=== PATIENT | female | born 2000 | race Caucasian/White ===

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

== ENCOUNTER 2019-02-17 16:54 | Emergency (ER) | payer MEDICAID, SELFPAY ==
[2019-02-17 16:58] VITALS: BP 137/90; PULSE 80; RESP 16; TEMP 36.5; O2SAT 100
--- NOTE | 2019-02-17 17:15 | ED.GENADUL_ITS ---
Discharge Plan Disposition Patient Disposition: HOME Discharge Details Chief Complaint: EarProblem Clinical Impression: Acute upper respiratory infection Primary Care Provider: Georgette Shea ED Provider: Esau Roth Home Meds and New Rx's Prescriptions: New azelastine 137 mcg (0.1 %) aerosol,spray 137 mcg MARBELLA ONCE Qty: 30 RF: 0 fluticasone propionate [Flonase Allergy Relief] 50 mcg/actuation spray,suspension 1 spray MARBELLA DAILY Qty: 15.8 RF: 0 Continued Excedrin Migraine 250-250-65 mg tablet 1 tab PO PRN RF: 0 desogestrel-ethinyl estradiol [Apri] 0.15-0.03 mg tablet 1 tab PO DAILY Qty: 84 RF: 3 ibuprofen [Advil] 200 MG tablet 200 mg PO Q6H PRN PRNQty: 60 RF: 0 Discharge Instructions Instructions: Upper Respiratory Infection (ED) Referrals: Georgette Shea [Primary Care Provider] - Medical Decision Making 18-year-old female with resolving URI symptoms and ear fullness most consistent with eustachian tube dysfunction likely secondary to congestion. No objective hearing loss nontoxic no evidence of bacterial infection plan for Flonase and Astelin fluids rest and PCP follow-up return for increasing symptoms new concern or inability to follow-up. HPI 18-year-old female past medical history of appendectomy intermittent migraines on oral contraceptives allergic to amoxicillin presents with 3 to 4 days nasal congestion and intermittent ear fullness and popping. No objective loss no fever chills shortness of breath chest pain nausea vomiting or loss of consciousness. Symptoms are acute waxing and waning not improve any treatment at home morning. General Date/Time Provider Initiated Documentation: 02/17/19 17:04 . Related Data Home Medications Medication Instructions Recorded Confirmed ibuprofen [Advil] 200 mg PO Q6H PRN PRN #60 tab 03/06/16 02/17/19 [id number] 250 1 tab PO PRN tab 12/30/18 02/17/19 mg-250 mg-65 mg tablet desogestrel 0.15 mg-ethinyl 1 tab PO DAILY #84 tab 12/30/18 02/17/19 estradiol 0.03 mg tablet azelastine 137 mcg MARBELLA ONCE #30 ml 02/17/19 fluticasone propionate [Flonase 1 spray MARBELLA DAILY #15.8 ml 02/17/19 Allergy Relief] Previous Rx's Medication Instructions Recorded ibuprofen [Advil] 200 mg PO Q6H PRN PRN #60 tab 03/06/16 desogestrel 0.15 mg-ethinyl 1 tab PO DAILY #84 tab 12/30/18 estradiol 0.03 mg tablet azelastine 137 mcg MARBELLA ONCE #30 ml 02/17/19 fluticasone propionate [Flonase 1 spray MARBELLA DAILY #15.8 ml 02/17/19 Allergy Relief] Allergies Allergy/AdvReac Type Severity Reaction Status Date / Time amoxicillin [Amoxicillin] Allergy Unknown Skin Rash Unverified 02/17/19 17:03 General Stated Complaint: EarProblem JENNIFER: 4 Review of Systems All systems reviewed & are unremarkable except as noted in HPI and below PFSH Surgical History (Updated 12/31/18 @ 07:06 by Zuleyka Moreno NP) Appendectomy (09/02/14) Hx of tonsillectomy (Chronic) Social History Smoking/Tobacco Use Status: Never Quit status: has quit before Alcohol Intake: never Drug use: Never Substance use type: does not use Do you feel safe at home: Yes Do you feel safe in your relationship?: Yes Exam Narrative Exam Narrative: Pulse oximetry reviewed by me and is normal [] Constitutional: Pt is in no acute distress. pt is well appearing. oriented to person, place, and time. Eyes: conjunctivae are normal. Pupils are equal, round, and reactive to light. No scleral icterus. extraocular muscles are intact pharynx mild cobblestoning erythema edema or exudates TMs clear bilateral no cerumen no erythema no effusion Ears/Nose/Mouth/Throat: mucus membranes are moist. Musculoskeletal: neck is supple. normal range of motion in all extremities. Cardiovascular: Normal rate and rhythm. No lower extremity edema [] Respiratory: effort is normal . pt exhibits no stridor or respiratory distress. [] GastrointestinaI: abdomen soft, +BS, nontender, -rebound, -guarding. Neurological: alert and oriented to person, place, and time. he has normal strength, no tremor. Skin: Skin is warm and dry. he is not diaphoretic. Distal perfusion in tact, warm extremities, cap refill ? 2 seconds. Hem/Lymph/Imm: No cervical LAD, no goiter, no conjunctival pallor Psych: normal mood and affect. behavior is normal Triage and nurse notes reviewed.[] Course Vital Signs Vital signs: Vital Signs Temperature 36.5 C 02/17/19 16:58 Pulse 80 02/17/19 16:58 Respiratory Rate 16 02/17/19 16:58 Blood Pressure 137/90 02/17/19 16:58 Pulse Oximetry 100 02/17/19 16:58 Temperature 36.5 C 02/17/19 16:58 Temperature Source Temporal Artery Scan 02/17/19 16:58 Pulse 80 02/17/19 16:58 Respiratory Rate 16 02/17/19 16:58 Respiratory Effort Non-Labored 02/17/19 17:02 Blood Pressure 137/90 02/17/19 16:58 Blood Pressure Position Sitting 02/17/19 16:58 Pulse Oximetry 100 02/17/19 16:58 Oxygen Delivery Method Room Air 02/17/19 16:58 Oxygen Flow Rate 0 02/17/19 16:58 Pain Level 4 02/17/19 17:05
== END 2019-02-17 17:16 | disposition home or self-care (01) ==
PROVIDERS: Emergency Provider Emergency Medicine; PCP Nurse Practitioner Pediatrics
DX: J06.9 Acute upper respiratory infection, unspecified (principal)
CPT/HCPCS: 99283

== ENCOUNTER 2019-11-22 11:45 | Outpatient (REF) | payer OTHER, SELFPAY ==
[2019-11-22 19:01] LABS: HCT 46.2 % (36.0-46.0); HGB 15.4 g/dL (11.2-15.7); MCH 27.5 pg (27.0-33.0); MCHC 33.3 % (32.0-36.0); MCV 82.6 fL (80-95); MPV 9.9 fL (8.0-11.0); Platelet Count 405 10^3/uL (130-400); RBC 5.59 10^6/uL (3.93-5.22); RDW 12.8 % (11.7-14.6); RDW-SD 38.4 fL; WBC 8.48 10^3/uL (4.4-10.8)
[2019-11-22 19:23] LABS: ALT 24 U/L (14-59); AST 15 U/L (15-37); Albumin 3.7 g/dL (3.4-5.0); Alkaline Phosphatase 79 U/L (46-116); Anion Gap 9.7 mmol/L (3-11); BUN 11 mg/dL (7-18); Bilirubin, Total 0.2 mg/dL (0.2-1.0); CO2 25.3 mmol/L (21.0-32.0); CREATININE 0.74 mg/dL (0.55-1.02); Calcium 9.6 mg/dL (8.5-10.1); Chloride 103 mmol/L (98-107); Glucose 68 mg/dL (74-106); Potassium 4.3 mmol/L (3.5-5.1); Sodium 138 mmol/L (136-145); TSH (W/Ref FT4) 1.68 uIU/mL (0.36-3.74); Total Protein 7.6 g/dL (6.4-8.2)
== END 2019-11-22 12:05 ==
LOC: NCHCN 11:45
PROVIDERS: PCP Nurse Practitioner; Visit Provider Nurse Practitioner
DX: Z13.29 Encounter for screening for other suspected endocrine disorder (principal); Z13.1 Encounter for screening for diabetes mellitus; Z68.43 Body mass index [BMI] 50.0-59.9, adult; K58.9 Irritable bowel syndrome, unspecified; R53.83 Other fatigue
CPT/HCPCS: 80053; 82306; 85027; 84443

== ENCOUNTER 2020-09-12 03:48 | Outpatient (CLI) | payer OTHER, SELFPAY ==
[2020-09-12 07:43] LABS: Lipase 93 U/L (73-393)
[2020-09-13 09:32] LABS: HIV-1/2 Ag & Ab Screen Negative (Negative)
[2020-09-13 10:28] LABS: Hepatitis C Ab w Rflx HCV PCR Negative (Negative)
[2020-09-17 12:41] LABS: IgA 61 mg/dL (85-499); Interpretation (See Note); Tissue Transglutaminase IgA <1.2 U/mL (<4.0)
== END 2020-09-12 03:49 | disposition home or self-care (01) ==
LOC: LBO 03:48
PROVIDERS: PCP Nurse Practitioner Adult Health; Visit Provider Nurse Practitioner Adult Health
DX: R19.7 Diarrhea, unspecified (principal); R10.2 Pelvic and perineal pain; Z11.4 Encounter for screening for human immunodeficiency virus [HIV]; Z11.59 Encounter for screening for other viral diseases
CPT/HCPCS: 36415; 82784; 83516; 83690; 86803; 87389; 83630

== ENCOUNTER 2021-02-20 02:31 | Outpatient (CLI) | payer MEDICAID, SELFPAY ==
[2021-02-20 10:53] LABS: Abs Immature Grans 0.04 10^3/uL (0.0-0.06); Absolute Basophil Count 0.02 10^3/uL (0.0-0.2); Absolute Eosinophil Count 0.16 10^3/uL (0.0-0.7); Absolute Lymphocyte Count 2.49 10^3/uL (1.2-3.4); Absolute Monocyte Count 0.44 10^3/uL (0.1-0.8); Absolute Neutrophil Count 7.25 10^3/uL (1.2-6.7); Basophils % 0.2; Eosinophils % 1.5; HCT 41.9 % (36.0-46.0); Immature Grans % 0.4; Lymphocytes % 23.9; MCH 27.8 pg (27.0-33.0); MCHC 33.4 % (32.0-36.0); MCV 83.3 fL (80-95); MPV 9.1 fL (8.0-11.0); Monocytes % 4.2; Neutrophils % 69.8; Nucleated RBC 0 %; Platelet Count 332 10^3/uL (130-400); RBC 5.03 10^6/uL (3.93-5.22); RDW 12.7 % (11.7-14.6); RDW-SD 38.4 fL
[2021-02-20 10:56] LABS: Glucose,1 Hr (Glucola) 124 mg/dL (80-140)
[2021-02-20 12:09] LABS: *AMPHETAMINES SCREEN URINE Negative (Negative); *BARBITURATES SCREEN URINE Negative (Negative); *BENZODIAZEPINES SCREEN URINE Negative (Negative); Cannabinoids THC Negative (Negative); Cocaine Screen,Urine Negative (Negative); METHADONE URINE SCREEN Negative (Negative); OPIATES URINE SCREEN Negative (Negative)
[2021-02-20 12:11] LABS: Tricyclic Antidepressants Negative (Negative)
[2021-02-21 08:48] LABS: Hepatitis B Surface Ag Negative (Negative)
[2021-02-21 09:37] LABS: Hepatitis C Ab w Rflx HCV PCR Negative (Negative)
[2021-02-21 09:41] LABS: HIV-1/2 Ag & Ab Screen Negative (Negative)
[2021-02-21 14:57] LABS: Syphilis Total Ab w/Reflex Nonreactive (Nonreactive)
[2021-02-21 15:47] LABS: Chlamydia Result Negative (Negative); GC Result Negative (Negative)
[2021-02-22 15:29] LABS: Rubella IgG Ab (UVM) Positive (See Note); Varicella IgG Antibody Positive (See Note)
[2021-02-26 10:16] LABS: Specimen WB Whole Blood
[2021-02-27 18:23] LABS: Result Summary NEGATIVE; Specimen WB Whole Blood
[2021-03-05 14:51] LABS: Buprenorphine Negative ng/mL (Cutoff: 5.0); Norbuprenorphine Negative ng/mL (Cutoff: 2.5)
== END 2021-02-20 02:32 | disposition home or self-care (01) ==
PROVIDERS: PCP Nurse Practitioner Adult Health; Visit Provider Advanced Practice Midwife
DX: Z34.91 Encounter for supervision of normal pregnancy, unspecified, first trimester
CPT/HCPCS: 36415; 80307; 81329; 82950; 86787; 86803; 86850; 86900; 86901; 87340; 87389; 87491; 87591; 81220; 84443; 85025; 86762; 86780; 87086

== ENCOUNTER 2021-02-20 10:41 | Outpatient (REF) | payer OTHER, SELFPAY ==
--- NOTE | 2021-02-20 10:00 | PAPFT_PTH ---
PATIENT: Jenifer Anglin LOC: [facility] U#:[id number] AGE/SX: ROOM: RE02/20/[address]: Rosita Motta CNM : 2000 BED: DIS: 02/20/2021 SPEC #: [id number]: RECD: 02/20/21 13:02 STATUS: ANA FRANCO #: [id number] ARABELLA: 02/20/21 10:[address]: Rosita Motta DEPT: [facility] Cytology RECD BY: Arlen Oconnell ENTERED: 02/20/21 13:02 SP TYPE: PAPFT MARIBEL DR: Shameka Johnson, TRUONG Tissues: 1 - CX/ENDOCX FOR PAP SMEARS Procedures: PAP THIN PREP/[facility] Screening Comments: [id number]
== END 2021-02-20 10:42 | disposition home or self-care (01) ==
LOC: LBN 10:41
PROVIDERS: PCP Nurse Practitioner Adult Health; Visit Provider Advanced Practice Midwife
DX: Z12.4 Encounter for screening for malignant neoplasm of cervix (principal)
CPT/HCPCS: 88142

== ENCOUNTER 2021-04-12 01:14 | Outpatient (CLI) | payer OTHER, MEDICAID, SELFPAY ==
--- NOTE | 2021-04-12 06:30 | DI.US_ITS ---
Exam(s) US OB 2-3 TRIMESTER W MOD EXAM: US OB 2-3 TRIMESTER W MOD CLINICAL HISTORY: 18 wk anatomy survey,Z34.90. TECHNIQUE: Transabdominal obstetrical ultrasound performed. COMPARISON: No exams were available for comparison FINDINGS: Transabdominal obstetrical ultrasound performed. FINDINGS: Number of fetuses: One. position: Vertex. heart rate: bpm. Placental location: There is a grade 1 anterior placenta. The placental tip is 1.2 cm from the inter nal os. No evidence of previa. Amniotic fluid index: Amount of fluid is within normal limits. ANATOMICAL SURVEY: Within normal limits. The nose and lips were not well appreciated on t his examination. BIOMETRIC DATA: BPD: 4.2cm consistent with 18 weeks 5 days. HC: 16cm consistent with 18 weeks 6 days. AC: 13.0cm consistent with 18 weeks 3 days. FL: 2.8cm consistent with 18 weeks 4 days. Cisterna Magna: 3.3 mm Cerebellum 1.8 cm: EFW: 246 grms 54% Composite Age: 18 weeks 5 days EDC by US: 09/08/2021 Heart Rate: 155BPM IMPRESSION: 1. Single live intrauterine gestation as above. 2. There is a low-lying placenta. 3. The nose and lips were not adequately visualized on the current examination. The patient should r eturn for reimaging of the nose and lips. DATA REPOSITORY:
== END 2021-04-12 01:34 ==
PROVIDERS: PCP Nurse Practitioner Adult Health; Visit Provider Advanced Practice Midwife
DX: O44.42 Low lying placenta NOS or without hemorrhage, second trimester (principal); Z3A.18 18 weeks gestation of pregnancy
CPT/HCPCS: 76805

== ENCOUNTER 2021-06-21 01:46 | Outpatient (CLI) | payer OTHER, MEDICAID, SELFPAY ==
[2021-06-21 11:25] LABS: HCT 39.5 % (36.0-46.0); HGB 12.8 g/dL (11.2-15.7); MCH 27.9 pg (27.0-33.0); MCHC 32.4 % (32.0-36.0); MCV 86.2 fL (80-95); MPV 9.2 fL (8.0-11.0); Platelet Count 288 10^3/uL (130-400); RBC 4.58 10^6/uL (3.93-5.22); RDW 14.2 % (11.7-14.6); RDW-SD 43.8 fL; WBC 14.09 10^3/uL (4.4-10.8)
[2021-06-21 11:36] LABS: Glucose,1 Hr (Glucola) 124 mg/dL (80-140)
== END 2021-06-21 01:47 | disposition home or self-care (01) ==
LOC: LBO 01:46
PROVIDERS: PCP Nurse Practitioner Adult Health; Visit Provider Advanced Practice Midwife
DX: Z34.93 Encounter for supervision of normal pregnancy, unspecified, third trimester (principal); Z3A.28 28 weeks gestation of pregnancy
CPT/HCPCS: 36415; 82950; 85027

== ENCOUNTER → 2021-08-05 02:19 | Outpatient (CLI) | payer OTHER, MEDICAID, SELFPAY ==
--- NOTE | 2021-08-05 08:15 | DI.US_ITS ---
Exam(s) US OB MARINO WEIGHT EXAM: US OB MARINO WEIGHT CLINICAL HISTORY: S>D,o26.843,SIZE OF FETUS INCONSISTENT WITH DATES. TECHNIQUE: Transabdominal obstetrical ultrasound performed. COMPARISON: US US OB 2-3 TRIMESTER W MOD from 04/12/2021 US US OB F/U FACIAL/LVOT/RVOT from 04/19/2021 US US OB F/U FACIAL/LVOT/RVOT from 06/21/2021 FINDINGS:: Number of fetuses: One. position: Vertex. Placental location: Anterior. No evidence of previa. BIOMETRIC DATA: BPD: 88mm = 35+4 weeks HC: 306 mm = 34 weeks AC: 307mm = 34+ 6 weeks FL: 67 mm = 34+5 weeks EFW: 2486 Gms = 41% Composite Age: 34+5 weeks EDC: 11 September 2021 Heart Rate: 153 BPM Amniotic fluid index: 7.6 cm. This corresponds to between 2. 5th and 5th percentile. IMPRESSION: size and weight are within the expected range. Oligohydramnios. DATA REPOSITORY:
== END ==
PROVIDERS: PCP Nurse Practitioner Adult Health; Visit Provider Advanced Practice Midwife
DX: O26.843 Uterine size-date discrepancy, third trimester (principal); Z3A.34 34 weeks gestation of pregnancy; O41.03X0 Oligohydramnios, third trimester, not applicable or unspecified
CPT/HCPCS: 76816

== ENCOUNTER 2021-08-14 08:06 | Outpatient (CLI) | payer OTHER, MEDICAID, SELFPAY ==
[2021-08-14 08:47] VITALS: BP 110/65; PULSE 111; TEMP 36.6
[2021-08-14 08:48] VITALS: BP 110/65; PULSE 111; RESP 18; TEMP 36.6
--- NOTE | 2021-08-14 10:10 | W.OBNST ---
Date of service: 08/14/21 Time of Service: 10:10 NST Evaluation Reason for NST Reasons for Nonstress Test: OTHER, SEE COMMENT Reason for NST Other: amniotic fluid check Gestational Age Gestational Age in Weeks and Days: 36 Weeks and 1Days Test and Monitor Explained Test/Monitor Explained: Test Explained, Monitor Explained and Patient Verbalized Understanding Vital Signs Blood Pressure: 110/65 Pulse: 111 Temperature: 97.9 F NST Information Date on Monitor: 08/14/21 Time on Monitor: 08:42 Date off Monitor: 08/14/21 Time off Monitor: 09:30 Total Time on Monitor: 48 NST Interventions: PO Hydration and Notify Provider Contraction Frequency: 0 NST Evaluation Patient States Movement: Present FHR Baseline: 150 Variability: Moderate 6-25 bpm Accelerations: 15x15 Decelerations: None NST Results: Reactive Note MARINO (Ultrasound done in DI last week gave MARINO of 7.6. Today is a scheduled follow-up MARINO @ 36 wks) Results of MARINO: 9.5 MARINO with single deepest pocket 3.9 cm Plan is repeat MARINO @ 40 wks NST Note NST Reviewed and Verified by: Rosita Motta
[2021-08-14 10:12] VITALS: BP 110/65; PULSE 111; TEMP 36.6
[2021-08-14 10:14] LABS: HCT 39.5 % (36.0-46.0); HGB 13.2 g/dL (11.2-15.7); MCH 27.8 pg (27.0-33.0); MCHC 33.4 % (32.0-36.0); MCV 83 fL (80-95); MPV 9.7 fL (8.0-11.0); Platelet Count 245 10^3/uL (130-400); RBC 4.75 10^6/uL (3.93-5.22); RDW 13.6 % (11.7-14.6); RDW-SD 41.1 fL; WBC 11.26 10^3/uL (4.4-10.8)
[2021-08-14 11:22] LABS: *AMPHETAMINES SCREEN URINE Negative (Negative); *BARBITURATES SCREEN URINE Negative (Negative); *BENZODIAZEPINES SCREEN URINE Negative (Negative); Cannabinoids THC Negative (Negative); Cocaine Screen,Urine Negative (Negative); METHADONE URINE SCREEN Negative (Negative); OPIATES URINE SCREEN Negative (Negative)
[2021-08-14 11:24] LABS: Tricyclic Antidepressants Negative (Negative)
[2021-08-20 14:53] LABS: Buprenorphine Negative ng/mL (Cutoff: 5.0); Norbuprenorphine Negative ng/mL (Cutoff: 2.5)
== END 2021-08-14 10:10 | disposition home or self-care (01) ==
LOC: BCD 08:10 → OBS 08:39
PROVIDERS: PCP Nurse Practitioner Adult Health; Visit Provider Advanced Practice Midwife
DX: O26.893 Other specified pregnancy related conditions, third trimester (principal); Z3A.36 36 weeks gestation of pregnancy
CPT/HCPCS: 59025; 36415; 80307; 85027; 87081

== ENCOUNTER 2021-09-03 14:03 | Outpatient (CLI) | payer OTHER, MEDICAID, SELFPAY ==
--- NOTE | 2021-09-03 | DI.US_ITS ---
Exam(s) US OB BIOPHYSICAL PROFILE EXAM: US OB BIOPHYSICAL PROFILE INDICATION: S>D, DFM, BMI 43. COMPARISON: US US OB MARINO WEIGHT from 09/03/2021 TECHNIQUE: Biophysical profile FINDINGS: Biophysical profile score is 8/8, with no points adducted IMPRESSION: Biophysical profile score is 8/8, with no points adducted
--- NOTE | 2021-09-03 | DI.US_ITS ---
Exam(s) US OB MARINO WEIGHT EXAM: US OB MARINO WEIGHT CLINICAL HISTORY: S>D, BMI 43. TECHNIQUE: Transabdominal obstetrical ultrasound was performed. COMPARISON: US US OB MARINO WEIGHT from 08/05/2021 FINDINGS: There is a single viable intrauterine gestation with cardiac activity identified-152 bpm The fetus is presently in cephalic position . Amniotic fluid: There is a decreased amount of amniotic fluid again noted with an MARINO of only 3.8cm. Placental location: The placenta is anterior grade 3,with no evidence of placenta previa. Dating parameters place this at approximately 38 weeks and 5 days gestational age, implying HUMBERTO of September 12, 2021. BPD measures 38 weeks HC measures 39 weeks AC measures 39 week FL measures 39 weeks Estimated weight is 3618 gm-8 pounds 0 and sys Fetus is at the 66th percentile on the Hadlock scale. IMPRESSION:: Viable 3rd trimester gestation, as described above. Oligo hydramnios again noted. The amniotic fluid index is significantly low, measuring 3.8 cm Biophysical profile is 8/8, with no points DATA REPOSITORY:
[2021-09-03 14:21] VITALS: BP 126/73; PULSE 93; TEMP 36.7
[2021-09-03 14:23] VITALS: BP 126/73; PULSE 93
[2021-09-03 16:21] VITALS: BP 126/73; PULSE 93; TEMP 36.7
--- NOTE | 2021-09-04 07:28 | W.OBNST ---
Date of service: 09/03/21 Time of Service: 16:00 NST Evaluation Reason for NST Reasons for Nonstress Test: DECREASED MOVEMENT Gestational Age Gestational Age in Weeks and Days: 39 Weeks and 0Days Test and Monitor Explained Test/Monitor Explained: Test Explained, Monitor Explained and Patient Verbalized Understanding Vital Signs Blood Pressure: 126/73 Pulse: 93 Temperature: 98.0 F Urine Results Urine Protein: Negative Urine Ketones: Negative Urine Glucose: Negative Urine Blood: Negative NST Information Date on Monitor: 09/03/21 Time on Monitor: 17:20 Date off Monitor: 09/03/21 Time off Monitor: 17:44 Total Time on Monitor: 24 NST Interventions: PO Hydration Contraction Frequency: 5-6 NST Evaluation Patient States Movement: Present FHR Baseline: 130 Variability: Moderate 6-25 bpm Accelerations: 15x15 Decelerations: None NST Results: Reactive Note Biophysical Profile (completed in DI) Results of Biophysical Profile: BPP score 6/8, MARINO was 3.8 with SDP of 2.0 EFW 3618 gms NST Note Note: Consultation with Dr. Anaya: NST is reactive, will have pt return tomorrow for repeat MARINO on Center Cvx 1/50%, posterior & soft, vtx -3 Farah score is 4 NST Reviewed and Verified by: Rosita Motta
[2021-09-04 07:32] VITALS: BP 126/73; PULSE 93; TEMP 36.7
== END 2021-09-03 16:48 | disposition home or self-care (01) ==
LOC: BCD 14:06 → OBS 14:17
PROVIDERS: PCP Nurse Practitioner Adult Health; Visit Provider Advanced Practice Midwife
DX: O36.8130 Decreased fetal movements, third trimester, not applicable or unspecified (principal); Z3A.39 39 weeks gestation of pregnancy; O41.03X0 Oligohydramnios, third trimester, not applicable or unspecified
CPT/HCPCS: 59025; 76815; 76816; 76819

== ENCOUNTER 2021-09-04 07:31 | Outpatient (CLI) | payer OTHER, MEDICAID, SELFPAY ==
[2021-09-04 10:18] VITALS: BP 128/70; PULSE 96; TEMP 36.8
[2021-09-04 10:19] VITALS: BP 128/70; PULSE 96
--- NOTE | 2021-09-04 11:51 | W.OBNST ---
Date of service: 09/04/21 Time of Service: 11:52 NST Evaluation Reason for NST Reasons for Nonstress Test: OLIGOHYDRAMNIOS Gestational Age Gestational Age in Weeks and Days: 40 Weeks and 0Days Test and Monitor Explained Test/Monitor Explained: Test Explained, Monitor Explained, Patient Verbalized Understanding and Other Vital Signs Blood Pressure: 128/70 Pulse: 96 Temperature: 98.2 F NST Information Date on Monitor: 09/04/21 Time on Monitor: 10:20 Date off Monitor: 09/04/21 Time off Monitor: 10:50 Total Time on Monitor: 30 NST Interventions: PO Hydration NST Evaluation Patient States Movement: Present FHR Baseline: 135 Variability: Moderate 6-25 bpm Accelerations: 15x15 Decelerations: None NST Results: Reactive Note MARINO Results of MARINO: 7.28 with SDP of 2.49 NST Note Note: Reviewed MARINO with pictures with Dr. Urrutia, plan of care discussed Pt to return to for NST in 3 days, and repeat NST with MARINO in 5-6 days Reviewed plan with pt and partner, they verbalize understanding and agreement with plan kick counts reviewed, pt will not return to work, note for employer given. NST Reviewed and Verified by: Rosita Motta
[2021-09-04 11:54] VITALS: BP 128/70; PULSE 96; TEMP 36.8
== END 2021-09-04 11:44 | disposition home or self-care (01) ==
LOC: BCD 07:41 → NUR 10:10 → OBS 10:13
PROVIDERS: PCP Nurse Practitioner Adult Health; Visit Provider Advanced Practice Midwife
DX: O41.03X0 Oligohydramnios, third trimester, not applicable or unspecified (principal); Z3A.40 40 weeks gestation of pregnancy
CPT/HCPCS: 59025

== ENCOUNTER 2021-09-07 09:49 | Outpatient (CLI) | payer OTHER, MEDICAID, SELFPAY ==
[2021-09-07 10:52] VITALS: BP 118/69; PULSE 97; TEMP 36.7
[2021-09-07 11:03] VITALS: BP 118/69; PULSE 97
--- NOTE | 2021-09-07 11:12 | W.OBNST ---
Date of service: 09/07/21 Time of Service: 11:13 NST Evaluation Reason for NST Reasons for Nonstress Test: OLIGOHYDRAMNIOS Reason for NST Other: low MARINO 7.28 by bedside US < 1 week ago Gestational Age Gestational Age in Weeks and Days: 39 Weeks and 4Days Test and Monitor Explained Test/Monitor Explained: Test Explained Vital Signs Blood Pressure: 118/69 Pulse: 97 Temperature: 98.1 F NST Information NST Interventions: PO Hydration NST Evaluation Patient States Movement: Present FHR Baseline: 150 Variability: Moderate 6-25 bpm Accelerations: 15x15 Decelerations: None Note NST Note Note: NST is reactive and reassuring. CAT Radha Burgess will return on 09/09 for repeat NST and MARINO due to MARINO 7.28 < 1week ago. NST Reviewed and Verified by: Karina Preston
[2021-09-07 11:13] VITALS: BP 118/69; PULSE 97; TEMP 36.7
== END 2021-09-07 11:15 | disposition home or self-care (01) ==
LOC: BCD 09:50 → OBS 10:28
PROVIDERS: PCP Nurse Practitioner Adult Health; Visit Provider Advanced Practice Midwife
DX: O41.03X0 Oligohydramnios, third trimester, not applicable or unspecified (principal); Z3A.39 39 weeks gestation of pregnancy
CPT/HCPCS: 59025

== ENCOUNTER 2021-09-09 12:04 | Inpatient (IN) | payer OTHER, MEDICAID, SELFPAY ==
[2021-09-09] VITALS (8 sets, daily range): BP systolic 111–132; BP diastolic 64–80; PULSE 79–98; RESP 18; TEMP 36.5–37
[2021-09-09 12:33] LABS: HCT 42.8 % (36.0-46.0); HGB 14.2 g/dL (11.2-15.7); MCH 27.2 pg (27.0-33.0); MCHC 33.2 % (32.0-36.0); MCV 82 fL (80-95); MPV 10.1 fL (8.0-11.0); Platelet Count 265 10^3/uL (130-400); RBC 5.22 10^6/uL (3.93-5.22); RDW 13.9 % (11.7-14.6); WBC 10.53 10^3/uL (4.4-10.8)
--- NOTE | 2021-09-09 12:50 | W.OBNST ---
Date of service: 09/09/21 Time of Service: 11:30 NST Evaluation Reason for NST Reasons for Nonstress Test: OLIGOHYDRAMNIOS Reason for NST Other: ? of oligo Gestational Age Gestational Age in Weeks and Days: 39 Weeks and 6Days Test and Monitor Explained Test/Monitor Explained: Test Explained, Monitor Explained and Patient Verbalized Understanding Vital Signs Blood Pressure: 132/80 Pulse: 94 Temperature: 97.7 F Urine Results Urine Protein: Negative Urine Ketones: Negative Urine Glucose: Positive Urine Blood: Negative NST Information Date on Monitor: 09/09/21 Time on Monitor: 10:15 Date off Monitor: 09/09/21 Time off Monitor: 11:00 Total Time on Monitor: 45 NST Interventions: PO Hydration Contraction Frequency: none NST Evaluation Patient States Movement: Present FHR Baseline: 150 Variability: Moderate 6-25 bpm Accelerations: 15x15 Decelerations: None NST Results: Reactive Note MARINO (4.26cm, very little visible fluid) and Other (Breathing movements noted. +gross movement. Reactive NST. No official BPP done. ) NST Note Note: MARINO for prior oligohydramnios with sono a week ago. Repeat sono end of last week had normal marino (7+). Sono today confirmed oligo. I recommend induction of labor and pt is agreeable to plan. Discussed findings with CNM manager occupational. NST Reviewed and Verified by: Summer Anaya
[2021-09-09] MEDS: miSOPROStol 25 MCG TAB 50 MCG PO ×3 (13:07→21:13)
--- NOTE | 2021-09-09 14:16 | W.OBNST ---
Date of service: 09/09/21 Time of Service: 14:17 NST Evaluation Reason for NST Reasons for Nonstress Test: OLIGOHYDRAMNIOS Reason for NST Other: ? of oligo Gestational Age Gestational Age in Weeks and Days: 39 Weeks and 6Days Test and Monitor Explained Test/Monitor Explained: Test Explained, Monitor Explained and Patient Verbalized Understanding Vital Signs Blood Pressure: 132/80 Pulse: 94 Temperature: 97.7 F Urine Results Urine Protein: Negative Urine Ketones: Negative Urine Glucose: Positive Urine Blood: Negative NST Information Date on Monitor: 09/09/21 Time on Monitor: 10:15 Date off Monitor: 09/09/21 Time off Monitor: 11:00 Total Time on Monitor: 45 NST Interventions: PO Hydration Contraction Frequency: none NST Evaluation Patient States Movement: Present FHR Baseline: 150 Variability: Moderate 6-25 bpm Accelerations: 15x15 Decelerations: None NST Results: Reactive Note NST Note Note: MARINO performed by Dr Summer simmons. MARINO 4.2 I discussed IOL with Jenifer and she is in agreement. She is admitted for IOL for oligohydramnios NST Reviewed and Verified by: Karina Malhotra
--- NOTE | 2021-09-09 14:47 | W.PM.OBHPL1 ---
Date of service: 09/09/21 Time of Service: 12:00 Assessment and Plan Assessment and plan (1) Oligohydramnios: Status: Acute (2) Encounter for elective induction of labor: Status: Acute Assessment and plan: Admit to Center. Comfort measures. Covid- 19 test. options for cervical ripening discussed and Jenifer and her partner, Wilian and they would like to proceed with mispoprostol for cervical ripening, Anticipate . OB-HPI Labor/Delivery History of Present Illness Reason for Visit: COVID.Pre procedure/operative Chief Complaint: Scheduled Induction of Labor Indication for Induction: Oligohydramnios. HUMBERTO Calculator Estimated Delivery Date Method Current WG Current Estimate 09/10/21 Ultrasound #1 39w 6d Other Estimates 09/05/21 LMP (Certain) 40w 4d Comments: Jenifer came to the center for an NST and MARINO check. MARINO was performed by Dr Anaya and MARINO was 4.2. IOL was discussed with Jenifer and she wishes to proceed with that today. History of Present Expected Delivery Route/Plan - CNM FOB/byfrnd - Wilian Suarez (first child) BB Yoni, yes to circ Plans formula feeding only GBS POSITIVE - antibiotic prophylaxis in labor (Ancef) Labor support Wilian, he passes out when he sees needles Trying to avoid medications in labor for pain, aware of nitrous use. Specific Issues/Plan 1. BMI 37: early glucola 124, 124 at 28 weeks 2. Pt and FOB decline COVID vaccination 3. Self reports Amoxicillin allergy, will discuss allergy testing 3a. Low risk per screening, desires allergy testing, ref to [facility] sent 02/20/21- pt declined appt 3b. Per allergy screening questions, pt is low risk for PCN reax, will use Ancef for GBS prophylaxis 4. Right sciatic pain, referred to PT 5. Start low dose ASA at 12 wks for nullip/BMI & strong family hx HTN 6. Desires CF/SMA screening, declined cfDNA, CF/SMA neg 7. Tinea Versicolor underneath breasts and at back of neck @ initial OB: 7a. Selsun Blue and H&S shampoo, Lotrimin cream TID under breasts, recheck in 1 month 8. s/p appendectomy age 14 9. Low lying placenta 1.2 cm from os at 18 wk scan, f/up scan @ 26-30 wks 9a: Done 06/21/21, placenta tip is 6 cm from internal os, no longer low lying 9b. MARINO 7.6 EFW 41%ile, repeat MARINO scheduled in 1 wk: MARINO @ 36 wks=9.5 PFSH All Active Problems (Updated 09/09/21 @ 14:53 by Karina Malhotra CNM) Encounter for elective induction of labor (Acute) Oligohydramnios (Acute) Amniotic fluid index borderline low (Acute) Group B streptococcal carriage complicating (Acute) Tinea versicolor (Acute) back of neck, underneath breasts bilaterally Family history of hypertension (Acute) extensive HTN in pt's immediate and extended family Sciatica of right side (Acute) refered to PT 02/20/21 Allergy to amoxicillin (Acute) Pt reports allergy is a skin rash, historically. Referred to [facility] for allergy testing 02/20/21 BMI 37.0-37.9, adult (Acute) (Acute) Medical History (Updated 09/09/21 @ 14:53 by Karina Malhotra CNM) Abdominal pain Contraception Diarrhea Rferred [facility] GI 08/2020-->11/13/20 letter from [facility] stating they hadn't heard from pt (vmail mailbox full) Low lying placenta nos or without hemorrhage, second trimester Size of fetus inconsistent with dates in third trimester Surgical History Appendectomy (09/02/14) Hx of tonsillectomy (~03/2015) Family History Father Hyperlipidemia Lung cancer metastasized to liver and bone Diabetes Hypertension Asthma Mother Thyroid disorder Paternal Cousin Breast cancer Maternal Uncle No problems noted. Paternal Grandfather , [place] (in his 70s?) Heart disease Social History Smoking/Tobacco Use Status: Former Tobacco Use tobacco type: e-cigarettes Quit Date: 03/02/18 Tobacco: How many years used: 4 Quit status: has quit before Second Hand Exposure: Yes Smoking risk assessment performed?: Yes Alcohol Intake: current Alcohol Intake frequency: holidays/special occasions only Drug use: Never Substance use type: does not use Details: no IV drug use Adopted: No Caregiver/Support person: No Foster care: No Household members: significant other Housing: house Number of Children: 0 Communication Needs: Corrective Lenses Education Level: college Details: some Do you need help understanding health information?: Never 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 Pets and animals: Yes Pets and animals: cat(s) Sexually active: Yes Do you think of yourself as: straight/heterosexual Current gender identity: female What is your relationship status?: living with partner Panel score (0-1 are the most socially isolated patients): 1 What type of physical activity do you participate in: regular exercise and other Details: softball 2 nights/week Duration: 60-90 minutes/day Frequency: 1-2 times per week Seatbelt use: never Drive intox or ride w/intox lumber driver: No Water heater temp set <120 deg: Yes Working smoke detector in home: Yes Fire extinguisher in home: Yes Carbon monox detector in home: Yes Firearms in home: No Do you feel safe at home: Yes Do you feel safe in your relationship?: Yes Additional Social history: Confirmed 09/09/21 History History 1 Para 0 Hx # Term Pregnancies 0 Multiple births 0 Hx # Pregnancies 0 Ectopic pregnancies 0 AB induced 0 Hx Number of Living Children 0 AB spontaneous 0 Meds Allergies and Home Medications Allergies Allergy/AdvReac Type Severity Reaction Status Date / Time amoxicillin [Amoxicillin] Allergy Unknown Skin Rash Verified 09/09/21 12:27 Home Medications Medication Instructions Recorded Confirmed Type vitamin with calcium 1 tab PO DAILY #90 tabs 01/29/21 09/09/21 Rx no.72-iron 27 mg-folic acid 1 mg tablet (PrePlus) aspirin 81 mg tablet,delayed 81 mg PO DAILY #60 tabs 02/20/21 09/09/21 Rx release Boostrix Tdap 2.5 Lf unit-8 mcg-5 0.5 ml IM ONCE #0.5 mL 07/19/21 Clinic Lf/0.5 mL intramuscular syringe (diphth,pertus(acell),tetanus) Exam Physical Exam Vital signs: Pulse BP 94 H 132/80 09/09/21 10:40 09/09/21 10:40 Detailed Labor and Delivery Exam Dilation: 1 Effacement (%): 50 station: -1 Cervix position: mid Consistency: soft Turpin Score: Cervical Points Exam 0 1 2 3 Dilation Closed 1-2cm 3-4 cm 5-6cm Effacement 0-30% 40-50% 60-70% 80% Consistency Firm Medium Soft Station -3 -2 -1,0 +1,+2 Position Posterior Mid Anterior TURPIN Score(Cervical Ripeness Score): 7 Amniotic Membrane Status: Intact Monitor Mode: External Contraction Frequency(min): occasional Contraction Duration(sec): 50 Contraction Intensity: Mild Fetus A Heart Rate Baseline: 130 Monitor Accelerations: 15 X 15 Monitor Decelerations: None Variability: Moderate (6-25 BPM) Presentation: Vertex Categories: Category I Est. Weight: 8 lb Respiratory Exam Respiratory Exam: Normal Cardiovascular Exam Cardiovascular Exam: Normal Abdominal Exam Abdominal Exam: Normal Exam Exam: Normal Extremities Exam Extremities Exam: Normal Back/Spine/Pelvis Exam Back Exam: Normal Skin Exam Skin Exam: Normal Psychiatric Exam Psychiatric Exam: Normal Results Results Group Beta Strep: Negative Blood Type: O+ Rubella Status: Immune Varicella Immunity: Immune Risk Assessment Risk for Shoulder Dystocia Historical/Initial OB: POSITIVE FOR: Pre- BMI>30; NEGATIVE FOR: Pelvic Abnormality, Previous Shoulder Dystocia or Previous Macrosomia Delivery Plan @ 36wks: spont labor, Delivery Plan @ 40 wks: IOL for oligohydramnios Risk for Pre-Eclampsia Date Initiated/Initials: start low dose ASA at 12 wks. KEIRA Yes, if one or more: NEGATIVE FOR: Hx Pre-E/Gest HTN, Chronic HTN, Multiple Gestation, Pre-gestational DM, Renal Disease, Systemic Lupus or APA Syndrome Yes, if 2 or more: POSITIVE FOR: Nulliparity and BMI>30; NEGATIVE FOR: Age>= 35 yrs, >10yr btwn pregnancies, ethinicty, Mother/Sister w/ Pre-E or Previous IUGR Risk for Post- Hemorrhage Initial: NEGATIVE FOR: Multiple Gestation, Previous PPH, Known Clotting Deficiency, Grand Multiparity or Anticoagulation Counseled re: Active Management: Yes (08/27/21 keira) Risks Reviewed Risks Reviewed Upon Admission: Yes
[2021-09-09 16:13] LABS: Source Nasal/Nares
[2021-09-09 17:05] LABS: COVID-19 PCR Negative (Negative)
[2021-09-10] VITALS (8 sets, daily range): BP systolic 107–134; BP diastolic 67–82; PULSE 62–105; RESP 16–18; TEMP 36.5–36.7
[2021-09-10] MEDS: miSOPROStol 25 MCG TAB 50 MCG PO (01:09)
[2021-09-10] MEDS: miSOPROStol 50 MCG TAB PO ×2 (08:14→12:28)
--- NOTE | 2021-09-10 11:59 | W.PM.OBNL1 ---
Date of service: 09/09/21 Time of Service: 22:30 Contractions Monitor Mode: External Contraction Frequency(min): occasional Contraction Duration(sec): 50 Intensity: Mild Fetus A Monitor: External (US) Heart Rate Baseline: 130 Presentation: Vertex Variability: Moderate (6-25 BPM) Categories: Category I FHR Rhythm: Regular Accelerations: 15 X 15 Decelerations: None Amniotic Membrane Status: Intact Assessment and Plan Assessment and plan (1) Encounter for elective induction of labor: Status: Acute Assessment and plan: Rest encouraged. Will plan to administer a fourth dose of misoprostol at 0100 and evaluate labor pattern. Will consider additional doses if indicated. (2) Oligohydramnios: Status: Acute Objective Temp Pulse Resp BP 98 F 88 16 128/79 09/10/21 07:58 09/10/21 07:58 09/10/21 07:58 09/10/21 07:58 Laboratory Results WBC 10.53 10^3/uL (4.4-10.8) 09/09/21 12:23 RBC 5.22 10^6/uL (3.93-5.22) 09/09/21 12:23 Hgb 14.2 g/dL (11.2-15.7) 09/09/21 12:23 Hct 42.8 % (36.0-46.0) 09/09/21 12:23 MCV 82 fL (80-95) 09/09/21 12:23 MCH 27.2 pg (27.0-33.0) 09/09/21 12:23 MCHC 33.2 % (32.0-36.0) 09/09/21 12:23 RDW 13.9 % (11.7-14.6) 09/09/21 12:23 Plt Count 265 10^3/uL (130-400) 09/09/21 12:23 MPV 10.1 fL (8.0-11.0) 09/09/21 12:23 COVID-19 Source Nasal/Nares 09/09/21 12:15 SARS-CoV-2 (PCR) Negative (Negative) 09/09/21 12:15 Patient ABO/Rh O Positive 09/09/21 12:23 Antibody Screen NEGATIVE 09/09/21 12:23 Subjective Interval history since last seen: Jenifer is comfortable. She has received 3 doses of misoprostol. She is resting. Results Hemoglobin/Hematocrit: Hgb 14.2 g/dL (11.2-15.7) 09/09/21 12:23 Hct 42.8 % (36.0-46.0) 09/09/21 12:23
--- NOTE | 2021-09-10 12:06 | W.PM.OBNL1 ---
Date of service: 09/10/21 Time of Service: 11:00 Informed Consent Informed Consent: Augmentation of Labor and Risk,Benefits,Alternatives Discussed (continued misporostol vs. cervical ripening balloon) Pelvic Exam Dilation: 1.5 Effacement (%): 80 station: -1 Cervix Position: mid Consistency: soft Vaginal Exam Presentation: Vertex Contractions Monitor Mode: External Contraction Frequency(min): every 3-4 Contraction Duration(sec): 60 Intensity: Moderate Fetus A Monitor: External (US) Heart Rate Baseline: 130 Presentation: Vertex Variability: Moderate (6-25 BPM) Categories: Category I FHR Rhythm: Regular Characteristics: Normal Accelerations: 15 X 15 Decelerations: None Amniotic Membrane Status: Intact Objective Temp Pulse Resp BP 98 F 88 16 128/79 09/10/21 07:58 09/10/21 07:58 09/10/21 07:58 09/10/21 07:58 Laboratory Results WBC 10.53 10^3/uL (4.4-10.8) 09/09/21 12:23 RBC 5.22 10^6/uL (3.93-5.22) 09/09/21 12:23 Hgb 14.2 g/dL (11.2-15.7) 09/09/21 12:23 Hct 42.8 % (36.0-46.0) 09/09/21 12:23 MCV 82 fL (80-95) 09/09/21 12:23 MCH 27.2 pg (27.0-33.0) 09/09/21 12:23 MCHC 33.2 % (32.0-36.0) 09/09/21 12:23 RDW 13.9 % (11.7-14.6) 09/09/21 12:23 Plt Count 265 10^3/uL (130-400) 09/09/21 12:23 MPV 10.1 fL (8.0-11.0) 09/09/21 12:23 COVID-19 Source Nasal/Nares 09/09/21 12:15 SARS-CoV-2 (PCR) Negative (Negative) 09/09/21 12:15 Patient ABO/Rh O Positive 09/09/21 12:23 Antibody Screen NEGATIVE 09/09/21 12:23 Subjective Interval history since last seen: Jenifer took a nap for over an hour. She is comfortable. She was examined upon awakening and there is evidence of cervical ripening. Results Hemoglobin/Hematocrit: Hgb 14.2 g/dL (11.2-15.7) 09/09/21 12:23 Hct 42.8 % (36.0-46.0) 09/09/21 12:23
--- NOTE | 2021-09-10 17:17 | W.PM.OBNL1 ---
Date of service: 09/10/21 Time of Service: 17:17 Informed Consent Informed Consent: Augmentation of Labor and Risk,Benefits,Alternatives Discussed (continued misporostol vs. cervical ripening balloon) Pelvic Exam Comments: pelvic exam deferred Contractions Monitor Mode: External Contraction Frequency(min): every 2-3 Contraction Duration(sec): 50-60 Intensity: Mild Fetus A Monitor: External (US) Heart Rate Baseline: 130 Presentation: Vertex Variability: Moderate (6-25 BPM) Categories: Category I FHR Rhythm: Regular Accelerations: 15 X 15 Decelerations: None Amniotic Membrane Status: Intact Assessment and Plan Assessment and plan (1) Encounter for elective induction of labor: Status: Acute Assessment and plan: options of cervical ripening balloon or pitocin discussed with Marbella. She strongly desires to proceed with pitocin induction. Will initiate pitocin at 2 mu/minute and reassess for cervical change when appropriate. Anticipate . Plan reviewed with Dr. Renan BROWNE. (2) Oligohydramnios: Status: Acute Objective Temp Pulse Resp BP 97.9 F 105 H 18 124/82 09/10/21 17:15 09/10/21 17:15 09/10/21 17:15 09/10/21 17:15 Laboratory Results WBC 10.53 10^3/uL (4.4-10.8) 09/09/21 12:23 RBC 5.22 10^6/uL (3.93-5.22) 09/09/21 12:23 Hgb 14.2 g/dL (11.2-15.7) 09/09/21 12:23 Hct 42.8 % (36.0-46.0) 09/09/21 12:23 MCV 82 fL (80-95) 09/09/21 12:23 MCH 27.2 pg (27.0-33.0) 09/09/21 12:23 MCHC 33.2 % (32.0-36.0) 09/09/21 12:23 RDW 13.9 % (11.7-14.6) 09/09/21 12:23 Plt Count 265 10^3/uL (130-400) 09/09/21 12:23 MPV 10.1 fL (8.0-11.0) 09/09/21 12:23 COVID-19 Source Nasal/Nares 09/09/21 12:15 SARS-CoV-2 (PCR) Negative (Negative) 09/09/21 12:15 Patient ABO/Rh O Positive 09/09/21 12:23 Antibody Screen NEGATIVE 09/09/21 12:23 Subjective Interval history since last seen: Jenifer reports a backache. She denies stronger contractions Results Hemoglobin/Hematocrit: Hgb 14.2 g/dL (11.2-15.7) 09/09/21 12:23 Hct 42.8 % (36.0-46.0) 09/09/21 12:23
[2021-09-10] MEDS: Oxytocin/Normal Saline 30 UNIT/500 ML BAG 2 UNITS IV (17:30)
[2021-09-10] MEDS: Lactated Ringers 1,000 ML 125 ML IV (17:30)
[2021-09-11] VITALS (25 sets, daily range): BP systolic 102–147; BP diastolic 54–79; PULSE 0–121; RESP 12–18; TEMP 36.5–37.2; O2SAT 97–100; BMI 44.6
--- NOTE | 2021-09-11 04:03 | W.PM.OBNL1 ---
Date of service: 09/11/21 Time of Service: 04:03 Informed Consent Informed Consent: Augmentation of Labor and Risk,Benefits,Alternatives Discussed (continued pitocin or discontine for sleep and restart or use misoprostol after she awakes) Pelvic Exam Dilation: 2 Effacement (%): 80 station: 0 Cervix Position: mid Consistency: soft Vaginal Exam Presentation: Vertex Contractions Monitor Mode: External Contraction Frequency(min): every 1 1/2-2 Contraction Duration(sec): 50 Intensity: Moderate/Strong Fetus A Monitor: External (US) Heart Rate Baseline: 140 Presentation: Vertex Variability: Moderate (6-25 BPM) Categories: Category I FHR Rhythm: Regular Accelerations: 15 X 15 Decelerations: None Amniotic Membrane Status: Intact Assessment and Plan Assessment and plan (1) Encounter for elective induction of labor: Status: Acute Assessment and plan: I discussed Jenifer's progress with her. She was given the option of discontinuing the monitor and taking ambien Po for sleep or continuing the pitocin with or with out medication for sleep. Jenifer would like to discontinue the pitocin and take ambien for sleep and we will proceed with that plan. Will reassess for cervical change after she awakes. (2) Oligohydramnios: Status: Acute Objective Temp Pulse Resp BP 97.9 F 96 H 18 111/66 09/10/21 17:15 09/11/21 03:06 09/10/21 17:15 09/11/21 03:06 Laboratory Results WBC 10.53 10^3/uL (4.4-10.8) 09/09/21 12:23 RBC 5.22 10^6/uL (3.93-5.22) 09/09/21 12:23 Hgb 14.2 g/dL (11.2-15.7) 09/09/21 12:23 Hct 42.8 % (36.0-46.0) 09/09/21 12:23 MCV 82 fL (80-95) 09/09/21 12:23 MCH 27.2 pg (27.0-33.0) 09/09/21 12:23 MCHC 33.2 % (32.0-36.0) 09/09/21 12:23 RDW 13.9 % (11.7-14.6) 09/09/21 12:23 Plt Count 265 10^3/uL (130-400) 09/09/21 12:23 MPV 10.1 fL (8.0-11.0) 09/09/21 12:23 COVID-19 Source Nasal/Nares 09/09/21 12:15 SARS-CoV-2 (PCR) Negative (Negative) 09/09/21 12:15 Patient ABO/Rh O Positive 09/09/21 12:23 Antibody Screen NEGATIVE 09/09/21 12:23 Subjective Interval history since last seen: Pitocin is at 20 mU. Jenifer has been trying to rest and has been unable to fall asleep for more than a few minutes. She complains of sever back ache. The Novii monitor was not detecting contractions so it was removed and the external ultrasound monitor was placed. It shows frequent contractions which are palpable as moderate to strong. Results Hemoglobin/Hematocrit: Hgb 14.2 g/dL (11.2-15.7) 09/09/21 12:23 Hct 42.8 % (36.0-46.0) 09/09/21 12:23
--- NOTE | 2021-09-11 04:09 | NUR.NOTE ---
Nursing Note: 0325 cnmw notified of patients status. kamari davison fiberglass tube molder at the bedside. asked to have moniotring go back to tocos as the nvii stopped working despite replacing battery. contractions now recording 1 1.5 min apart moderate lasting 60 seconds. pt was examined 2 80 and 0 staion. fiberglass tube molder discussed with patient her options. pt agrees to take something for sleep and tuen the pit and iv fluids off at this time.
[2021-09-11] MEDS: Zolpidem 10 MG TAB PO (04:23)
--- NOTE | 2021-09-11 09:08 | W.PM.OBNL1 ---
Date of service: 09/11/21 Time of Service: 08:55 Informed Consent Informed Consent: Augmentation of Labor, Induction of Labor, Risk,Benefits,Alternatives Discussed (continued pitocin or discontine for sleep and restart or use misoprostol after she awakes) and Other (Amniotomy, Amnioinfusion if needed and Pitocin reviewed) Pelvic Exam Comments: VE deferred until amniotomy. Contractions Monitor Mode: Palpation Contraction Frequency(min): rare Contraction Duration(sec): irregular Intensity: Mild Fetus A Assessment Note: doppler FHR has been reassuring rate. plan to place on monitor at time of amniotomy for NST and if reassuring will allow for intermittent FHR unless pitocin is restarted. Assessment and Plan Assessment and plan (1) Oligohydramnios: Status: Acute Assessment and plan: 1. Discussed with Jenifer, options for labor induciton today. She is hoping to avoid Pitocin and agrees to trial of AROM and if no active labor understands that pitocin may be required again. 2. We discussed risks, benefit and alternatives to AROM, pitocin and potential for amnioinfusion. Patient denes questions and agrees to this plan. 3. Plan reviewed with Dr. Anaya who is OB physician workers compensation adjuster today and MD agrees to plan. Objective Temp Pulse Resp BP Pulse Ox 98.4 F 102 H 12 128/70 97 09/11/21 09:04 09/11/21 09:04 09/11/21 09:04 09/11/21 09:04 09/11/21 09:04 Laboratory Results WBC 10.53 10^3/uL (4.4-10.8) 09/09/21 12:23 RBC 5.22 10^6/uL (3.93-5.22) 09/09/21 12:23 Hgb 14.2 g/dL (11.2-15.7) 09/09/21 12:23 Hct 42.8 % (36.0-46.0) 09/09/21 12:23 MCV 82 fL (80-95) 09/09/21 12:23 MCH 27.2 pg (27.0-33.0) 09/09/21 12:23 MCHC 33.2 % (32.0-36.0) 09/09/21 12:23 RDW 13.9 % (11.7-14.6) 09/09/21 12:23 Plt Count 265 10^3/uL (130-400) 09/09/21 12:23 MPV 10.1 fL (8.0-11.0) 09/09/21 12:23 COVID-19 Source Nasal/Nares 09/09/21 12:15 SARS-CoV-2 (PCR) Negative (Negative) 09/09/21 12:15 Patient ABO/Rh O Positive 09/09/21 12:23 Antibody Screen NEGATIVE 09/09/21 12:23 Subjective Interval history since last seen: Jenifer is awake and looking to move forward with her induction. Had good sleep from 0500 until now. She would like to shower and eat breakfast before further interventions. We discussed amniotomy with a period of observation to see if that would cause labor and if not active in 2-4 hours we would add pitocin. We also discussed IUPC and amnioinfusion if needed for heart rate decelerations that could occur due to cord compression. Verbalizes understanding. KH Results Hemoglobin/Hematocrit: Hgb 14.2 g/dL (11.2-15.7) 09/09/21 12:23 Hct 42.8 % (36.0-46.0) 09/09/21 12:23
[2021-09-11] MEDS: Normal Saline Flush 10 ML SYR IVP ×2 (11:03→15:30)
[2021-09-11] MEDS: ceFAZolin 2 GM/50 ML BAG IVPB (11:10)
--- NOTE | 2021-09-11 15:09 | W.PM.OBNL1 ---
Date of service: 09/11/21 Time of Service: 15:09 Informed Consent Informed Consent: Augmentation of Labor, Induction of Labor, Risk,Benefits,Alternatives Discussed (continued pitocin or discontine for sleep and restart or use misoprostol after she awakes) and Other (Amniotomy, Amnioinfusion if needed and Pitocin reviewed) Pelvic Exam Comments: VE deferred due to ROM and not having frequent contractions by palpation. KH Contractions Monitor Mode: Palpation Contraction Frequency(min): irregular Contraction Duration(sec): 60-80 Intensity: Mild Fetus A Monitor: External (US) Heart Rate Baseline: 130 Variability: Moderate (6-25 BPM) Categories: Category I Accelerations: 15 X 15 Decelerations: None Assessment and Plan Assessment and plan (1) Oligohydramnios: Status: Acute Assessment and plan: 1. After period of observation following AROM, Jenifer is not experiencing adequate contractions. She agrees to augmentation with pitocin at this time. 2. Reviewed pain management options, patient prefers to use shower as much as possible and will use [employer] monitor. 3. Will reassess for cervical changes once having regular contractions occuring every 2-4 minutes lasting a minute or as indicated by maternal status. 4. Continue to expect NVD. We disucssed active management of third stage and medications used due to increased risk for PPH. Patient verbalizes understanding and agrees to medications as indicated. KH Objective Temp Pulse Resp BP Pulse Ox 97.7 F 101 H 16 114/70 97 09/11/21 13:54 09/11/21 13:54 09/11/21 13:54 09/11/21 13:54 09/11/21 09:04 Laboratory Results WBC 10.53 10^3/uL (4.4-10.8) 09/09/21 12:23 RBC 5.22 10^6/uL (3.93-5.22) 09/09/21 12:23 Hgb 14.2 g/dL (11.2-15.7) 09/09/21 12:23 Hct 42.8 % (36.0-46.0) 09/09/21 12:23 MCV 82 fL (80-95) 09/09/21 12:23 MCH 27.2 pg (27.0-33.0) 09/09/21 12:23 MCHC 33.2 % (32.0-36.0) 09/09/21 12:23 RDW 13.9 % (11.7-14.6) 09/09/21 12:23 Plt Count 265 10^3/uL (130-400) 09/09/21 12:23 MPV 10.1 fL (8.0-11.0) 09/09/21 12:23 COVID-19 Source Nasal/Nares 09/09/21 12:15 SARS-CoV-2 (PCR) Negative (Negative) 09/09/21 12:15 Patient ABO/Rh O Positive 09/09/21 12:23 Antibody Screen NEGATIVE 09/09/21 12:23 Vital Signs Reviewed: Yes Subjective Interval history since last seen: Feeling intermittent sharp back pain which is worse when in bed on monitor. She denies bleeding. Baby is active. Contractions have not increased in intensity despite several hours of observation following AROM. Jenifer agrees to pitocin augmentation at this time. She is also receiving IV Keflex for GBS prophylaxis. She had pitocin yesterday and verbalizes understanding of its use, risks, benefits and alternatives. KH Results Hemoglobin/Hematocrit: Hgb 14.2 g/dL (11.2-15.7) 09/09/21 12:23 Hct 42.8 % (36.0-46.0) 09/09/21 12:23
[2021-09-11] MEDS: Lactated Ringers 1,000 ML 125 ML IV ×2 (15:30→19:29)
[2021-09-11] MEDS: Oxytocin/Normal Saline 30 UNIT/500 ML BAG 2 UNITS IV (15:35)
--- NOTE | 2021-09-11 18:45 | W.PM.OBNL1 ---
Date of service: 09/11/21 Time of Service: 18:45 Informed Consent Informed Consent: Augmentation of Labor, Induction of Labor, Risk,Benefits,Alternatives Discussed (continued pitocin or discontine for sleep and restart or use misoprostol after she awakes) and Other (Amniotomy, Amnioinfusion if needed and Pitocin reviewed) Pelvic Exam Dilation: 3 Effacement (%): 90 station: 0 Cervix Position: mid Consistency: soft Contractions Monitor Mode: External Contraction Frequency(min): 2-5 Contraction Duration(sec): 40-70 Intensity: Mild/Moderate Fetus A Monitor: Novii Heart Rate Baseline: 135 Variability: Moderate (6-25 BPM) Categories: Category I Accelerations: 15 X 15 Decelerations: None Assessment and Plan Assessment and plan (1) Oligohydramnios: Status: Acute Assessment and plan: 1. Labor pain management options have been reviewed with patient, she is considering options. Encouraged position changes and hydration. 2. Will hold pitocin at current rate for 1 hour and then reassess for increase to allow for effective contractions. 3. Physician is in house currently and updated on patient status. KH Objective Temp Pulse Resp BP Pulse Ox 98.2 F 99 H 16 129/79 97 09/11/21 18:18 09/11/21 18:18 09/11/21 18:18 09/11/21 18:18 09/11/21 09:04 Laboratory Results WBC 10.53 10^3/uL (4.4-10.8) 09/09/21 12:23 RBC 5.22 10^6/uL (3.93-5.22) 09/09/21 12:23 Hgb 14.2 g/dL (11.2-15.7) 09/09/21 12:23 Hct 42.8 % (36.0-46.0) 09/09/21 12:23 MCV 82 fL (80-95) 09/09/21 12:23 MCH 27.2 pg (27.0-33.0) 09/09/21 12:23 MCHC 33.2 % (32.0-36.0) 09/09/21 12:23 RDW 13.9 % (11.7-14.6) 09/09/21 12:23 Plt Count 265 10^3/uL (130-400) 09/09/21 12:23 MPV 10.1 fL (8.0-11.0) 09/09/21 12:23 COVID-19 Source Nasal/Nares 09/09/21 12:15 SARS-CoV-2 (PCR) Negative (Negative) 09/09/21 12:15 Patient ABO/Rh O Positive 09/09/21 12:23 Antibody Screen NEGATIVE 09/09/21 12:23 Vital Signs Reviewed: Yes Subjective Interval history since last seen: Jenifer is tired and feeling down that cervix has changed minimally today. I reviewed that although she is having contractions, they are not strong yet and that we should increase pitocin to get contractions that will allow her cervix to open and change. She is not feeling discomfort in her abdomen at all, alll pain is in her lower back. We have reviewed pain management options and has tried nitrous without relief, she does not like feeling dizzy and high from it. I have asked if she is opposed to epidural as it may affort her the relief she needs to rest and we could increase pitocin. We decided that she can think about that option as there are few other options that will not make her dizzy and or feel high. She wants a period of time to think and I will go back to talk with her and answer any questions I can. We have tried other methods such as back rub, hands and knees, rocking chair and shower with minimal relief of her discomfort. KH Results Hemoglobin/Hematocrit: Hgb 14.2 g/dL (11.2-15.7) 09/09/21 12:23 Hct 42.8 % (36.0-46.0) 09/09/21 12:23
[2021-09-11] MEDS: ceFAZolin 1 GM/50 ML BAG IVPB (19:29)
--- NOTE | 2021-09-11 20:25 | W.PM.OBNL1 ---
Date of service: 09/11/21 Time of Service: 20:10 Informed Consent Informed Consent: Augmentation of Labor, Induction of Labor, Risk,Benefits,Alternatives Discussed (continued pitocin or discontine for sleep and restart or use misoprostol after she awakes) and Other (Amniotomy, Amnioinfusion if needed and Pitocin reviewed) Pelvic Exam Comments: VE deferred until after epidural. KH Contractions Monitor Mode: Palpation Contraction Frequency(min): 2-4 Contraction Duration(sec): 40-60 Intensity: Moderate Fetus A Monitor: Novii Heart Rate Baseline: 135 Variability: Moderate (6-25 BPM) Categories: Category I Assessment and Plan Assessment and plan (1) Oligohydramnios: Status: Acute Assessment and plan: 1. Pitocin is held at 10 units until epidural is placed 2. LOCATOR paged by user support analyst supervisor 3. Will reassess after epidural. KH Objective Temp Pulse Resp BP Pulse Ox 98.2 F 113 H 18 131/66 97 09/11/21 18:18 09/11/21 19:35 09/11/21 19:35 09/11/21 19:35 09/11/21 09:04 Laboratory Results WBC 10.53 10^3/uL (4.4-10.8) 09/09/21 12:23 RBC 5.22 10^6/uL (3.93-5.22) 09/09/21 12:23 Hgb 14.2 g/dL (11.2-15.7) 09/09/21 12:23 Hct 42.8 % (36.0-46.0) 09/09/21 12:23 MCV 82 fL (80-95) 09/09/21 12:23 MCH 27.2 pg (27.0-33.0) 09/09/21 12:23 MCHC 33.2 % (32.0-36.0) 09/09/21 12:23 RDW 13.9 % (11.7-14.6) 09/09/21 12:23 Plt Count 265 10^3/uL (130-400) 09/09/21 12:23 MPV 10.1 fL (8.0-11.0) 09/09/21 12:23 COVID-19 Source Nasal/Nares 09/09/21 12:15 SARS-CoV-2 (PCR) Negative (Negative) 09/09/21 12:15 Patient ABO/Rh O Positive 09/09/21 12:23 Antibody Screen NEGATIVE 09/09/21 12:23 Subjective Interval history since last seen: Requesting epidural for pain management. Has had emesis but denies pain other than her back. Anesthesia had consulted with patient yesterday and Jenifer denies questions at this time. Assistant General Manager will page. DIOGENES Results Hemoglobin/Hematocrit: Hgb 14.2 g/dL (11.2-15.7) 09/09/21 12:23 Hct 42.8 % (36.0-46.0) 09/09/21 12:23
--- NOTE | 2021-09-11 20:37 | W.ANESPRE ---
General Info Date of Service Date Performed: 09/11/21 Height: 5 ft 2 in Weight: 110.677 kg Body Mass Index (BMI): 44.6 Meds Allergies and Home Medications Allergies Allergy/AdvReac Type Severity Reaction Status Date / Time amoxicillin [Amoxicillin] Allergy Unknown Skin Rash Verified 09/09/21 12:27 Home Medication Medication Instructions Recorded vitamin with calcium 1 tab PO DAILY #90 tabs 01/29/21 no.72-iron 27 mg-folic acid 1 mg tablet (PrePlus) aspirin 81 mg tablet,delayed 81 mg PO DAILY #60 tabs 02/20/21 release Current Visit Medications: Current Medications Generic Name Dose Route Start Last Admin Trade Name Freq PRN Reason Stop Dose Admin Ringer's Solution 1,000 mls @ 125 mls/hr 09/10/21 17:00 09/11/21 19:29 IV 125 mls/hr INFUSION CEZAR Administration Sodium Chloride 500 mls @ 0 mls/hr 09/10/21 16:57 Saline 500ml Bag IV PRN PRN As Directed Oxytocin/Sodium Chloride 30 unit in 500 mls @ 2 mls/hr 09/10/21 17:00 09/10/21 22:08 Pitocin/Normal Saline IV 20 milliunits/min INFUSION CEZAR 20 mls/hr Titration Protocol 2 MILLIUNITS/MIN Sodium Chloride 500 mls @ 0 mls/hr 09/10/21 17:00 Saline 500ml Bag IV PRN PRN As Directed Cefazolin Sodium/Dextrose 1 gm in 50 mls @ 100 mls/hr 09/11/21 19:00 09/11/21 19:29 Ancef Duplex IVPB 100 mls/hr Q8H CEZAR Administration Ringer's Solution 1,000 mls @ 125 mls/hr 09/11/21 15:15 09/11/21 15:30 IV 125 mls/hr INFUSION CEZAR Administration Oxytocin/Sodium Chloride 30 unit in 500 mls @ 2 mls/hr 09/11/21 15:15 09/11/21 17:39 Pitocin/Normal Saline IV 10 milliunits/min INFUSION CEZAR 10 mls/hr Titration Protocol 2 MILLIUNITS/MIN IV Miscellaneous Supplies 1 each 09/10/21 17:00 Iv Access IV DIRECTED CEZAR IV Miscellaneous Supplies 1 each 09/10/21 17:00 Iv Access IV DIRECTED CEZAR Sodium Chloride 0 ml 09/10/21 16:57 09/11/21 15:30 Normal Saline Flush 10 Ml Syr IVP 10 ml PRN PRN Administration Sodium Chloride 0 ml 09/10/21 17:00 Normal Saline Flush 10 Ml Syr IVP PRN PRN Terbutaline Sulfate 0.25 mg 09/09/21 12:05 Terbutaline 1 Mg/Ml Vial SC PRN PRN PFSH Active Problems Active Problems: Problem Status Onset Code Encounter for elective induction of labor Z34.90 Oligohydramnios O41.00X0 Amniotic fluid index borderline low O28.8 Group B streptococcal carriage complicating O99.820 Tinea versicolor B36.0 Family history of hypertension Z82.49 Sciatica of right side M54.31 Allergy to amoxicillin Z88.0 BMI 37.0-37.9, adult Z68.37 Z34.90 Medical History Medical History (Updated 09/09/21 @ 14:53 by Karina Malhotra CNM) Abdominal pain Contraception Diarrhea Rferred [facility] 08/2020-->11/13/20 letter from [facility] stating they hadn't heard from pt (vmail mailbox full) Low lying placenta nos or without hemorrhage, second trimester Size of fetus inconsistent with dates in third trimester Surgical History Surgical History Appendectomy (09/02/14) Hx of tonsillectomy (~03/2015) Tobacco Smoking/Tobacco Use Status: Former Tobacco Use Passive smoking exposure: Yes Second hand exposure: Yes Alcohol Alcohol Intake: current Alcohol intake frequency: holidays/special occasions only Substance Use Substance use: Never Substance use type: does not use Details: no IV drug use Prental History History 1 Para 0 Hx # Term Pregnancies 0 Multiple births 0 Hx # Pregnancies 0 Ectopic pregnancies 0 AB induced 0 Hx Number of Living Children 0 AB spontaneous 0 Vital Signs and Lab Results Vital Signs Most Recent Vital Signs in EMR: Most Recent Vital Signs Temp Pulse Resp BP Pulse Ox 36.8 C 113 H 18 131/66 97 09/11/21 18:18 09/11/21 19:35 09/11/21 19:35 09/11/21 19:35 09/11/21 09:04 Lab Results Result Diagrams: 09/09/21 12:23 Blood Type / Crossmatch: Patient ABO/Rh O Positive 09/09/21 Antibody Screen NEGATIVE 09/09/21 Complete Blood Count: White Blood Count 10.53 10^3/uL (4.4-10.8) 09/09/21 12:23 Red Blood Count 5.22 10^6/uL (3.93-5.22) 09/09/21 12:23 Hemoglobin 14.2 g/dL (11.2-15.7) 09/09/21 12:23 Hematocrit 42.8 % (36.0-46.0) 09/09/21 12:23 Platelet Count 265 10^3/uL (130-400) 09/09/21 12:23 Complete Metabolic Panel: No Data to Display Liver Function Panel: No Data to Display Coagulation Panel: No Data to Display Cardiac Panel: No Data to Display Arterial Blood Gas: No Data to Display Venous Blood Gas: No Data to Display Pancreas Panel: No Data to Display Thyroid Panel: No Data to Display Infectious Disease: Coronavirus (COVID-19)(PCR) Negative (Negative) 09/09/21 12:15 Coronavirus 2019 Source Nasal/Nares 09/09/21 12:15 Blood Cultures: No Data to Display Toxicology Panel: Urine Amphetamines Screen Negative (Negative) 08/14/21 10:15 Urine Benzodiazepines Screen Negative (Negative) 08/14/21 10:15 Urine Barbiturates Screen Negative (Negative) 08/14/21 10:15 Urine Cocaine Screen Negative (Negative) 08/14/21 10:15 Urine Methadone Screen Negative (Negative) 08/14/21 10:15 Urine Opiates Screen Negative (Negative) 08/14/21 10:15 Ur Tricyclic Antidepressants Screen Negative (Negative) 08/14/21 10:15 Ur Tetrahydrocannabinol (THC) Scrn Negative (Negative) 08/14/21 10:15 Panel: No Data to Display Anesthesia Assessment and Plan Anesthesia History Personal History: No History of Anesthesia Complications Family History: No Family History of Anesthesia Complications Exercise Tolerance Exercise Tolerance: Metabolic Equivalents>4 Pertinent Negatives Pertinent Negatives: No Major Cardiovascular Symptoms or Complaints, No Major Pulmonary Symptoms or Complaints and No History of CVA/TIA Cardiac & Pulmonary Exam Cardiac Exam: Normal S1/S2 Heart Sounds Pulmonary Exam: Clear Bilateral Breath Sounds Implantable Cardiac Device Does patient have a Pacemaker or an ICD?: No Airway Exam Known Difficult Airway: No Mallampati Class: 2 Mouth Opening: Normal (> 3cm) Thyromental Distance: Greater than 3 cm Neck Range of Motion: Full ROM Neck Circumference: Thick Teeth Condition: Normal Dentition ASA Classification ASA Score: ASA 3 Emergency Case?: No NPO Status NPO Status: NPO Clears >2 hours, Solids >8 hours Status Status: Confirmed Anesthesia Plan Resuscitation Status: Full Code Anesthesia Technique: Epidural Anesthesia Airway Planned: Natural Airway Pain Management: Epidural Monitors Used: Standard Monitors
[2021-09-11] MEDS: Bupivacaine 0.25% Pres-Free 10 ML VIAL (20:38)
[2021-09-11] MEDS: fentaNYL 100 MCG/2 ML VIAL (20:40)
--- NOTE | 2021-09-11 21:44 | W.PM.OBNL1 ---
Date of service: 09/11/21 Time of Service: 21:45 Informed Consent Informed Consent: Augmentation of Labor, Induction of Labor, Risk,Benefits,Alternatives Discussed (continued pitocin or discontine for sleep and restart or use misoprostol after she awakes) and Other (Amniotomy, Amnioinfusion if needed and Pitocin reviewed) Pelvic Exam Dilation: 4 Effacement (%): 100 station: 0 Contractions Monitor Mode: Palpation (graciela novii) Contraction Frequency(min): 4-5 minutes with some irritability between Contraction Duration(sec): 40-50 Intensity: Mild/Moderate Fetus A Monitor: Novii Heart Rate Baseline: 140 Variability: Moderate (6-25 BPM) Categories: Category II Assessment Note: tracing is difficult to determine baseline as patient is repositioned to right lateral from left lateral. prior to repositioning FHR baseline was 150 with variable decelerations. Plan is IUPC and EFM to better interpret contractions and be able to better assess FHR. KH Assessment and Plan Assessment and plan (1) Oligohydramnios: Status: Acute Assessment and plan: 1. Will increase pitocin once tracing is CAT I 2. Patient is very comfortable after epidural 3. If necessary will place IUPC to allow for better interpretation of tracing and know contraction strength better. Objective Temp Pulse Resp BP Pulse Ox 98.2 F 98 H 18 102/60 98 09/11/21 18:18 09/11/21 21:38 09/11/21 19:35 09/11/21 21:38 09/11/21 21:05 Laboratory Results WBC 10.53 10^3/uL (4.4-10.8) 09/09/21 12:23 RBC 5.22 10^6/uL (3.93-5.22) 09/09/21 12:23 Hgb 14.2 g/dL (11.2-15.7) 09/09/21 12:23 Hct 42.8 % (36.0-46.0) 09/09/21 12:23 MCV 82 fL (80-95) 09/09/21 12:23 MCH 27.2 pg (27.0-33.0) 09/09/21 12:23 MCHC 33.2 % (32.0-36.0) 09/09/21 12:23 RDW 13.9 % (11.7-14.6) 09/09/21 12:23 Plt Count 265 10^3/uL (130-400) 09/09/21 12:23 MPV 10.1 fL (8.0-11.0) 09/09/21 12:23 COVID-19 Source Nasal/Nares 09/09/21 12:15 SARS-CoV-2 (PCR) Negative (Negative) 09/09/21 12:15 Patient ABO/Rh O Positive 09/09/21 12:23 Antibody Screen NEGATIVE 09/09/21 12:23 Subjective Interval history since last seen: Jenifer is very comfortable status post epidural and is hoping to nap. KH Results Hemoglobin/Hematocrit: Hgb 14.2 g/dL (11.2-15.7) 09/09/21 12:23 Hct 42.8 % (36.0-46.0) 09/09/21 12:23
--- NOTE | 2021-09-11 22:28 | ANES.NEUR_ITS ---
Epidural/Spinal Catheter Date Performed: 09/11/21 Procedure Start: 20:49 Procedure Stop: 21:08 Requesting Provider: Karina Preston Procedure Location: Obstetrics Reason Performed: Labor Epidural Standard Monitors Applied: Blood Pressure, SpO2 and ETCO2 Patient Position: Sitting Sedation Given (Indicate Dose Given): No Sedation given Patient Mental Status: Awake Sterility: Hand Hygiene, Surgical Cap, Surgical Mask, Sterile Gloves, Sterile Drape/Sheet and Chlorhexidine Procedure Location: L2-L3 Interspace Epidural Needle: Tuohy 18 Gauge Needle Length: 3.5 Inch Needle Approach: Midline Epidural Procedure: Skin Prepped, Sterile Drape Placed, 1% Lidocaine to skin and subcutaneous tissue with 25G needle, Tuohy Needle placed, RANDY to Saline Used, Epidural Catheter Placed, Negative Heme, Negative CSF Flow and Tuohy Needle Removed Catheter Placed?: Catheter Placed Test Dose (Indicate Dose Given): 3ml 1.5% Lidocaine with 1:200K Epinephrine Given and Negative Test Dose Loss of Resistance Depth (cm): 9 Catheter depth at skin (cm): 15 Dressing: Sorbaview Dressing Placed, Mastisol Used and Dressing reinforced with Tape Epidural Provider Bolus (Indicate Dose Given): Total bolus dose given in 3-5 ml divided doses and Total Bupivacaine 0.25% Given (ml) Dose:: 7 ml Additives (Indicate Dose Given ): Fentanyl PF Dose:: 100 mcg Infusion Medication: Medication Inf usion Began Medication Infusion: Ropivacaine 0.125% with Fentanyl 2mcg/ml Maintenance Infusion Rate (ml/hour): 10 PCEA Bolus Dose (ml): 5 Post Procedure Pain score (0-10): 0 Block Level: N/A Paresthesia: Left Paresthesia Duration: Transient and Right Paresthesia Duration: Transient Ultrasound: Not Used Number of Attempts (See previous attempts in note section): 2 Procedure Tolerated: No Complications Procedure Outcome: Successful Procedure Comment:: Unable to palpate spinal processes First attempt encountered bone, successful with withdrawal and repositioning. Performed By: Sushila Butterfield
[2021-09-12] VITALS (19 sets, daily range): BP systolic 106–132; BP diastolic 56–84; PULSE 73–123; RESP 16–19; TEMP 36.2–37.3; O2SAT 95–100
--- NOTE | 2021-09-12 00:16 | NUR.NOTE ---
Nursing Note: 2230 internal monitors placed and then they fell out . 2330 dr simmons replaced iupc and toco replaced externally for heartrate. 0005 amnio infusion started. 2300 cryptologic supervisor up to restart iv in right arm above ac area. 2245 blount catheter was placed to monitor output draining clear yellow urine
--- NOTE | 2021-09-12 01:09 | PGE_ITS ---
Date of service: 09/12/21 Time of Service: 01:09 Informed Consent Informed Consent: Augmentation of Labor, Induction of Labor, Risk,Benefits,Alternatives Discussed (continued pitocin or discontine for sleep and restart or use misoprostol after she awakes) and Other (Amniotomy, Amnioinfusion if needed and Pitocin reviewed) Pelvic Exam Dilation: 6 Effacement (%): 100 station: 0 Contractions Monitor Mode: External Contraction Frequency(min): irregular Contraction Duration(sec): 30-60 Intensity: Mild Fetus A Monitor: External (US) Heart Rate Baseline: 160 Variability: Moderate (6-25 BPM) Accelerations: 10 X 10 Decelerations: Variable (occasional variable at this time.DIOGENES) Assessment and Plan Assessment and plan (1) Maternal fever affecting labor: Status: Acute Assessment and plan: 1. Loan Auditor has reviewed with Dr. Anaya maternal condition, most recent temp 99.4 but patient reports feeling very warm and has some chills, no odor to amniotic fluid noted. 2. Will give additional antibiotics of Gentamycin and Clindamycin per consult with Dr. Anaya. 3. Continue to observe FHR at this time with pitocin off, if continued changes to FHR that are concerning occur will move to C/S if FHR tracing becomes CAT I with normal baseline will consider restarting pitocin. 4. Patient is aware of concerns for infection and that currently FHR does not tolerate contractions well and rationale for antibiotics and period of rest from contractions. Verbalizes understanding and agrees that if is needed that she understands. KH (2) tachycardia affecting management of mother: Status: Acute Assessment and plan: 1. IV fluid bolus and antibiotics per order and reassess. KH Objective Temp Pulse Resp BP Pulse Ox 98.2 F 98 H 18 112/54 L 98 09/11/21 18:18 09/11/21 22:37 09/11/21 19:35 09/11/21 22:37 09/11/21 21:05 Laboratory Results WBC 10.53 10^3/uL (4.4-10.8) 09/09/21 12:23 RBC 5.22 10^6/uL (3.93-5.22) 09/09/21 12:23 Hgb 14.2 g/dL (11.2-15.7) 09/09/21 12:23 Hct 42.8 % (36.0-46.0) 09/09/21 12:23 MCV 82 fL (80-95) 09/09/21 12:23 MCH 27.2 pg (27.0-33.0) 09/09/21 12:23 MCHC 33.2 % (32.0-36.0) 09/09/21 12:23 RDW 13.9 % (11.7-14.6) 09/09/21 12:23 Plt Count 265 10^3/uL (130-400) 09/09/21 12:23 MPV 10.1 fL (8.0-11.0) 09/09/21 12:23 COVID-19 Source Nasal/Nares 09/09/21 12:15 SARS-CoV-2 (PCR) Negative (Negative) 09/09/21 12:15 Patient ABO/Rh O Positive 09/09/21 12:23 Antibody Screen NEGATIVE 09/09/21 12:23 Subjective Interval history since last seen: Over past 2 hours we have been working to do different methods of intrauterine resuscitation due to occasional late decelerations. Dr. Anaya has been kept informed and was present to place IUPC as the IUPC placed by scientific writer fell out. At that time we started amnioinfusion of LR, bolus 200 cc over 30 minutes and then decreased to 75 cc/hr for maintenance. Pitocin was at 12 mu and contractions were not meeting MVU criteria but due to occasional late decelerations, pitocin was turned off and wrter talked with Dr. Anaya again at 0032 to review tracing. MD requested to monitor FHR now that pitocin is off and reassess. At approximately 0105 scientific writer asked MD to review tracing due to tachycardia but no decelerations and moderate variablity. We will continue to monitor FHR and give another IV bolus and see if tachycardia will resolve and leave pitocin off at this time. I have spoken with pateint about the changes in FHR and that if we are unable to turn pitocin back on or if patient desires section or heart rate indicates. KH Results Hemoglobin/Hematocrit: Hgb 14.2 g/dL (11.2-15.7) 09/09/21 12:23 Hct 42.8 % (36.0-46.0) 09/09/21 12:23
[2021-09-12] MEDS: CLINDAMYCIN 900 MG/50 ML BAG 50 MG IVPB (02:14)
--- NOTE | 2021-09-12 02:30 | W.PM.OBNL1 ---
Date of service: 09/12/21 Time of Service: 02:30 Informed Consent Informed Consent: Augmentation of Labor, Induction of Labor, Risk,Benefits,Alternatives Discussed (continued pitocin or discontine for sleep and restart or use misoprostol after she awakes) and Other (Amniotomy, Amnioinfusion if needed and Pitocin reviewed) Pelvic Exam Comments: VE deferred. Contractions Monitor Mode: Internal Contraction Frequency(min): irreg Contraction Duration(sec): 30-50 IUPC resting tone (mmHg): 2 IUPC [place] units: 12 Fetus A Monitor: External (US) Heart Rate Baseline: 150 Variability: Minimal (1-5 BPM) Accelerations: 10 X 10 Decelerations: None Assessment Note: IV antibiotics given for maternal fever and previous tachycardia. Assessment and Plan Assessment and plan (1) Oligohydramnios: Status: Acute Assessment and plan: 1. Currently allowing for maternal and rest, IV hydration, IV antibiotics per consult with Dr. Anaya 2. IF FHR remains WNL will discuss option of restarting pitocin with patient with knowledge that if baby does not tolerate contractions again that would be recommended. Objective Temp Pulse Resp BP Pulse Ox 98.2 F 123 H 18 111/69 98 09/11/21 18:18 09/12/21 01:17 09/11/21 19:35 09/12/21 01:17 09/11/21 21:05 Laboratory Results WBC 10.53 10^3/uL (4.4-10.8) 09/09/21 12:23 RBC 5.22 10^6/uL (3.93-5.22) 09/09/21 12:23 Hgb 14.2 g/dL (11.2-15.7) 09/09/21 12:23 Hct 42.8 % (36.0-46.0) 09/09/21 12:23 MCV 82 fL (80-95) 09/09/21 12:23 MCH 27.2 pg (27.0-33.0) 09/09/21 12:23 MCHC 33.2 % (32.0-36.0) 09/09/21 12:23 RDW 13.9 % (11.7-14.6) 09/09/21 12:23 Plt Count 265 10^3/uL (130-400) 09/09/21 12:23 MPV 10.1 fL (8.0-11.0) 09/09/21 12:23 COVID-19 Source Nasal/Nares 09/09/21 12:15 SARS-CoV-2 (PCR) Negative (Negative) 09/09/21 12:15 Patient ABO/Rh O Positive 09/09/21 12:23 Antibody Screen NEGATIVE 09/09/21 12:23 Subjective Interval history since last seen: Jenifer is resting well. Epidural remains very effective. Tolerating small amounts of clear fluids PO. Is aware that we are allowing baby to rest and that FHR is now in normal range 150's baseline, minimal to moderate variability and accels 10 X 10, no decelerations at this time. Results Hemoglobin/Hematocrit: Hgb 14.2 g/dL (11.2-15.7) 09/09/21 12:23 Hct 42.8 % (36.0-46.0) 09/09/21 12:23
[2021-09-12] MEDS: ceFAZolin 1 GM/50 ML BAG IVPB (04:01)
--- NOTE | 2021-09-12 07:12 | W.PM.OBNL1 ---
Date of service: 09/12/21 Time of Service: 07:12 Informed Consent Informed Consent: Augmentation of Labor, Induction of Labor, Risk,Benefits,Alternatives Discussed (continued pitocin or discontine for sleep and restart or use misoprostol after she awakes) and Other (Amniotomy, Amnioinfusion if needed and Pitocin reviewed) Pelvic Exam Comments: VE deferred Contractions Monitor Mode: Internal Contraction Frequency(min): irregular Contraction Duration(sec): irregular IUPC peak pressure (mmHg): 10 Fetus A Monitor: External (US) Heart Rate Baseline: 140 Variability: Moderate (6-25 BPM) Categories: Category I Accelerations: 15 X 15 Decelerations: None Assessment and Plan Assessment and plan (1) Oligohydramnios: Status: Acute Assessment and plan: 1. We have had good results from amnio-infusion and uterine rest with pitocin off, CAT II tracing is now CAT I 2. Patient discussing paln for delivery with family 3. This plan has been made in collaboration with Dr. Anaya. KH Objective Temp Pulse Resp BP Pulse Ox 98.1 F 103 H 17 114/71 98 09/12/21 05:50 09/12/21 07:07 09/12/21 05:50 09/12/21 07:07 09/11/21 21:05 Laboratory Results WBC 10.53 10^3/uL (4.4-10.8) 09/09/21 12:23 RBC 5.22 10^6/uL (3.93-5.22) 09/09/21 12:23 Hgb 14.2 g/dL (11.2-15.7) 09/09/21 12:23 Hct 42.8 % (36.0-46.0) 09/09/21 12:23 MCV 82 fL (80-95) 09/09/21 12:23 MCH 27.2 pg (27.0-33.0) 09/09/21 12:23 MCHC 33.2 % (32.0-36.0) 09/09/21 12:23 RDW 13.9 % (11.7-14.6) 09/09/21 12:23 Plt Count 265 10^3/uL (130-400) 09/09/21 12:23 MPV 10.1 fL (8.0-11.0) 09/09/21 12:23 COVID-19 Source Nasal/Nares 09/09/21 12:15 SARS-CoV-2 (PCR) Negative (Negative) 09/09/21 12:15 Patient ABO/Rh O Positive 09/09/21 12:23 Antibody Screen NEGATIVE 09/09/21 12:23 Vital Signs Reviewed: Yes Subjective Interval history since last seen: Jenifer is very fatigued. FHR has been reassuring, currently CAT I. VS are stable. I have reviewed tracing again with Dr. Anaya and she feels that if patient prefers to trial pitocin again that it is reasonable. If patient feels that she does not want to increase risk of FHR decelerations then offering is also reasonable. I have reviewed these options and that we can move forward with either now as baby's heart rate and her status are normal and census / acuity of patients in unit allow for enough staff to offer the options and that OR is aware and available. Patient is discussing with family and I stated I would return in 30 minutes to review unless she puts call santiago on before that. I have reviewed that continued pitocin does not guarantee vaginal delivery and the process for section, she has had opportunity to ask questions and denies any at this time. She will talk it over with family members and put electronic development technician santiago if she has questions. KH Results Hemoglobin/Hematocrit: Hgb 14.2 g/dL (11.2-15.7) 09/09/21 12:23 Hct 42.8 % (36.0-46.0) 09/09/21 12:23
--- NOTE | 2021-09-12 07:20 | W.PM.OBNL1 ---
Date of service: 09/12/21 Time of Service: 07:20 Informed Consent Informed Consent: Augmentation of Labor, Induction of Labor, Risk,Benefits,Alternatives Discussed (continued pitocin or discontine for sleep and restart or use misoprostol after she awakes) and Other (Amniotomy, Amnioinfusion if needed and Pitocin reviewed) Objective Temp Pulse Resp BP Pulse Ox 98.1 F 103 H 17 114/71 98 09/12/21 05:50 09/12/21 07:07 09/12/21 05:50 09/12/21 07:07 09/11/21 21:05 Laboratory Results WBC 10.53 10^3/uL (4.4-10.8) 09/09/21 12:23 RBC 5.22 10^6/uL (3.93-5.22) 09/09/21 12:23 Hgb 14.2 g/dL (11.2-15.7) 09/09/21 12:23 Hct 42.8 % (36.0-46.0) 09/09/21 12:23 MCV 82 fL (80-95) 09/09/21 12:23 MCH 27.2 pg (27.0-33.0) 09/09/21 12:23 MCHC 33.2 % (32.0-36.0) 09/09/21 12:23 RDW 13.9 % (11.7-14.6) 09/09/21 12:23 Plt Count 265 10^3/uL (130-400) 09/09/21 12:23 MPV 10.1 fL (8.0-11.0) 09/09/21 12:23 COVID-19 Source Nasal/Nares 09/09/21 12:15 SARS-CoV-2 (PCR) Negative (Negative) 09/09/21 12:15 Patient ABO/Rh O Positive 09/09/21 12:23 Antibody Screen NEGATIVE 09/09/21 12:23 Subjective Interval history since last seen: Jenifer has decided she would like to move forward with delivery and Dr. Anaya is aware and making arrangements to move forward. KH Interventions Other (plan to move forward with ) Results Hemoglobin/Hematocrit: Hgb 14.2 g/dL (11.2-15.7) 09/09/21 12:23 Hct 42.8 % (36.0-46.0) 09/09/21 12:23
--- NOTE | 2021-09-12 07:43 | PGE_ITS ---
Date of service: 09/12/21 Time of Service: 07:20 Informed Consent Informed Consent: Augmentation of Labor, Induction of Labor, Risk,Benefits,Alternatives Discussed (continued pitocin or discontine for sleep and restart or use misoprostol after she awakes) and Other (Amniotomy, Amnioinfusion if needed and Pitocin reviewed) Fetus A Heart Rate Baseline: 145 Variability: Moderate (6-25 BPM) Categories: Category I Accelerations: 15 X 15 Decelerations: None (currently) Amniotic Membrane Status: Ruptured Rupture Method: Artifical Amniotic Fluid: Clear Assessment and Plan Assessment and plan (1) Category II heart rate tracing during labor and delivery: Status: Acute Assessment and plan: Risks of CS reviewed with pt including infection, bleeding, pain and injury to n earby organs. Consents signed and questions answered. Objective Temp Pulse Resp BP Pulse Ox 99.1 F 93 H 16 132/82 98 09/12/21 07:39 09/12/21 07:39 09/12/21 07:39 09/12/21 07:39 09/12/21 07:07 Laboratory Results WBC 10.53 10^3/uL (4.4-10.8) 09/09/21 12:23 RBC 5.22 10^6/uL (3.93-5.22) 09/09/21 12:23 Hgb 14.2 g/dL (11.2-15.7) 09/09/21 12:23 Hct 42.8 % (36.0-46.0) 09/09/21 12:23 MCV 82 fL (80-95) 09/09/21 12:23 MCH 27.2 pg (27.0-33.0) 09/09/21 12:23 MCHC 33.2 % (32.0-36.0) 09/09/21 12:23 RDW 13.9 % (11.7-14.6) 09/09/21 12:23 Plt Count 265 10^3/uL (130-400) 09/09/21 12:23 MPV 10.1 fL (8.0-11.0) 09/09/21 12:23 COVID-19 Source Nasal/Nares 09/09/21 12:15 SARS-CoV-2 (PCR) Negative (Negative) 09/09/21 12:15 Patient ABO/Rh O Positive 09/09/21 12:23 Antibody Screen NEGATIVE 09/09/21 12:23 Subjective Interval history since last seen: Pt underwent induction of labor for oligohydramnios. She progressed to 4cm and underwent AROM @10:30 on 09/11/21 as she was not progressing further. Then she continued on pitocin and received an epidural in the evening. Her ctxs were not adequate but she was unable to tolerate more at the time. After the epidural the pitocin was increased but the baby had intermittent late and variable decels and some periods of tachycardia and minimal variability. Pitocin was turned off. She then had a temp of 99.4. Difficulty was had in placing internal monitors but eventually an IUPC was successful and an amnioinfusion was started. She was on Kefzol for GBS ppx and she got a dose of clindamycin and gentamicin for suspected chorioamnionitis. The pt wanted to rest and then eventually opted for a CS rather then repeat trial of pitocin. She was only 6cm and the baby was unable to tolerate adequate contractions. Results Hemoglobin/Hematocrit: Hgb 14.2 g/dL (11.2-15.7) 09/09/21 12:23 Hct 42.8 % (36.0-46.0) 09/09/21 12:23
[2021-09-12] MEDS: Sodium Citrate 30 ML CUP PO (08:00)
[2021-09-12] MEDS: ceFAZolin 2 GM/50 ML BAG IVPB (08:00)
[2021-09-12] MEDS: Lactated Ringers 1,000 ML 125 ML IV ×2 (08:30→11:30)
--- NOTE | 2021-09-12 09:13 | PLAC_PTH ---
PATIENT: Jenifer Anglin LOC: OBS U#:[id number] AGE/SX: 21 ROOM: OBS.306 RE09/09/[address]: Karina Malhotra : 2000 BED: A DIS: 09/14/2021 SPEC #: [id number] RECD: 09/12/21 12:41 STATUS: ANA REQ #: [id number] ARABELLA: 09/12/21 09:[address]: Karina Malhotra DEPT: Surgical Specimen RECD BY: Arlen Oconnell ENTERED: 09/12/21 12:41 SP TYPE: PLAC OTHR DR: Shameka Johnson APRN Tissues: 1 - PLACENTA (3RD TRIMESTER) Procedures: GROSS AND MICRO LEVEL 5 Comments: [id number]
[2021-09-12] MEDS: Bupivacaine 0.25% Pres-Free 30 ML VIAL (09:58)
[2021-09-12] MEDS: Oxytocin/Normal Saline 30 UNIT/500 ML BAG 167 UNITS IV (10:25)
--- NOTE | 2021-09-12 12:03 | W.ANESPOSTOP ---
Postoperative Evaluation Date, Time and Location Date Performed: 09/12/21 Time Performed: 11:55 Patient Location: Day Surgery Unit Vital Signs Most Recent Imported Vital Signs: Most Recent Vital Signs Temp Pulse Resp BP Pulse Ox 37.3 C 115 H 16 132/82 97 09/12/21 07:39 09/12/21 08:10 09/12/21 07:39 09/12/21 07:39 09/12/21 08:10 Assessment Mental Status: Awake (Alert & Oriented to Patient Baseline) Airway and Respiratory Function: Patent airway with normal (patient baseline) respiratory exam Cardiovascular Function: Hemodynamically Stable Hydration Status: Adequately Hydrated Nausea & Vomiting: No Nausea or Vomiting Pain: Pt. Denies Any Pain Peripheral Nerve Block: Patient did not receive a nerve block Postoperative Comments:: Spinal not fully resolved, but doing well. No complaints.
[2021-09-12] MEDS: Ketorolac 30 MG/ML VIAL IVP ×2 (15:55→21:38)
[2021-09-12] MEDS: Lactated Ringers 1,000 ML 120 ML IV (19:01)
[2021-09-13 01:17] VITALS: BP 107/72; PULSE 84; RESP 12; TEMP 36.4; O2SAT 98
[2021-09-13] MEDS: Ketorolac 30 MG/ML VIAL IVP (03:39)
[2021-09-13] MEDS: Lactated Ringers 1,000 ML 30 ML IV (03:39)
[2021-09-13 08:00] VITALS: BP 118/81; PULSE 100; RESP 16; TEMP 36.6; O2SAT 100
[2021-09-13] MEDS: Docusate Sodium 100 MG CAP PO (08:41)
[2021-09-13] MEDS: Ibuprofen 600 MG TAB PO ×3 (08:42→21:34)
[2021-09-13] MEDS: Acetaminophen 325 MG TAB 650 MG PO ×4 (08:42→23:25)
--- NOTE | 2021-09-13 11:03 | W.PM.OBPNV1 ---
Date of service: 09/13/21 Time of Service: 11:03 Assessment and Plan Assessment and plan (1) Status post primary low transverse section: Status: Acute Assessment and plan: Patient is seen postoperative day #1 status post labor induction due to oligohydramnios. Labor course was complicated by maternal and tachycardia and maternal fever. She did have appropriate antibiotic coverage. Ultimately, she went on to a primary low-transverse section due to labor arrest. She had a macrosomic infant. She is doing well postoperative day #1 today, she has been ambulating, tolerating a regular diet and oral pain medication. She is bottlefeeding her infant. Patient and her partner do request circumcision and risk benefits alternatives discussed with the patient. This will be performed prior to discharge home. Patient does request discharge home at the earliest possibility. My impression would be that this could be as early as tomorrow. We will continue to watch her vital signs, monitor for ongoing or recurrence of fever. All questions were answered. (2) Maternal fever affecting labor: Status: Acute (3) tachycardia affecting management of mother: Status: Acute (4) Oligohydramnios: Status: Acute Subjective Subjective Interval history: Patient seen this morning, postoperative day #1 status post primary low transverse section for labor arrest. Overall she is doing well. Her pain is well controlled. She has been ambulating and tolerating a regular diet. Patient's Mood: Appropriate [place] baby status: Doing well [place] feeding status: Bottle Feeding Exam Physical Exam Vital signs: Temp Pulse Resp BP Pulse Ox 97.9 F 100 H 16 118/81 100 09/13/21 08:00 09/13/21 08:00 09/13/21 08:00 09/13/21 08:00 09/13/21 08:00 Constitutional Constitutional: no acute distress HEENT Exam HEENT Exam: Normal Respiratory Exam Respiratory Exam: Normal Cardiovascular Exam Cardiovascular Exam: Normal Abdominal Exam Abdomen: Tender (Incisional discomfort) Fundal Exam Fundus: Below Umbilicus and Firm Extremities Exam Extremity Exam: Normal; negative Calf Tenderness Neurological Exam Neurological Exam: Normal Psychiatric Exam Psychiatric Exam: Normal Results Hemoglobin/Hematocrit: Hgb 14.2 g/dL (11.2-15.7) 09/09/21 12:23 Hct 42.8 % (36.0-46.0) 09/09/21 12:23
[2021-09-13 14:55] VITALS: BP 110/74; PULSE 84; RESP 16; TEMP 36.4
[2021-09-13 17:33] LABS: Abs Immature Grans 0.17 10^3/uL (0.0-0.06); Absolute Basophil Count 0.05 10^3/uL (0.0-0.2); Absolute Monocyte Count 1.14 10^3/uL (0.1-0.8); Absolute Neutrophil Count 11.49 10^3/uL (1.2-6.7); Basophils % 0.3; Eosinophils % 1.2; HCT 31.9 % (36.0-46.0); HGB 10.6 g/dL (11.2-15.7); Lymphocytes % 20.2; MCH 27.4 pg (27.0-33.0); MCHC 33.2 % (32.0-36.0); MCV 82 fL (80-95); MPV 10.2 fL (8.0-11.0); Neutrophils % 70.3; Platelet Count 257 10^3/uL (130-400); RBC 3.87 10^6/uL (3.93-5.22); RDW 14.6 % (11.7-14.6); RDW-SD 42.9 fL; WBC 16.35 10^3/uL (4.4-10.8)
[2021-09-13 18:05] VITALS: BP 110/73; PULSE 85; RESP 16; TEMP 36.7
[2021-09-13 23:30] VITALS: BP 113/77; PULSE 98; RESP 18; TEMP 37; O2SAT 100
[2021-09-14] MEDS: Acetaminophen 325 MG TAB 650 MG PO (06:26)
[2021-09-14] MEDS: Ibuprofen 600 MG TAB PO (06:26)
--- NOTE | 2021-09-14 08:46 | OBPPV_ITS ---
Date of service: 09/14/21 Time of Service: 08:46 Assessment and Plan Assessment and plan (1) Status post primary low transverse section: Status: Acute Assessment and plan: Patient is postoperative day #2 status post primary low-transverse section after failed labor induction due to oligohydramnios. Labor was complicated by maternal fever, and tachycardia. She received appropriate antibiotic coverage. She went on to a primary low-transverse section for an arrest of labor. She delivered a viable male infant. Her course was uncomplicated and she will be discharged home today, postoperative day #2, ambulating, tolerating regular diet and oral pain medication with stable vital signs. She will have close follow-up for wound examination in the office in approximately 2 days and again in 2 and 6 weeks. (2) Category II heart rate tracing during labor and delivery: Status: Acute (3) tachycardia affecting management of mother: Status: Acute (4) Oligohydramnios: Status: Acute Subjective Subjective Interval history: Patient seen and examined this morning. Feeling well. Pain is well controlled. Baby has been sleeping reasonably appropriately. Patient comments: No complaints, Pain well controlled, Incisional pain and Tolerating diet Patient's Mood: Good [place] feeding status: Bottle Feeding Exam Physical Exam Vital signs: Temp Pulse Resp BP Pulse Ox 98.6 F 98 H 18 113/77 100 09/13/21 23:30 09/13/21 23:30 09/13/21 23:30 09/13/21 23:30 09/13/21 23:30 Vital Signs Reviewed: Yes Constitutional Constitutional: no acute distress and obese HEENT Exam HEENT Exam: Normal Neck Exam Neck Exam: Normal Respiratory Exam Respiratory Exam: Normal Cardiovascular Exam Cardiovascular Exam: Normal Abdominal Exam Abdomen: Tender Comments: Incision is dressed with Steri-Strips. There is some mild erythema and induration which appears to be edema due to body habitus. There are no discrete signs of infection. There is no drainage or fluctuance. Fundal Exam Fundus: Below Umbilicus and Firm Extremities Exam Extremity Exam: Normal; negative Calf Tenderness Skin Exam Skin Exam: Normal Neurological Exam Neurological Exam: Normal Psychiatric Exam Psychiatric Exam: Normal Results Hemoglobin/Hematocrit: Hgb 10.6 g/dL (11.2-15.7) L 09/13/21 17:00 Hct 31.9 % (36.0-46.0) L 09/13/21 17:00 Abnormal Lab Findings: Abnormal Labs 09/13/21 17:00 WBC 16.35 H RBC 3.87 L Hgb 10.6 L Hct 31.9 L Absolute Neutrophils 11.49 H Absolute Monocytes 1.14 H
--- NOTE | 2021-09-14 08:55 | DSE_ITS ---
Date of service: 09/14/21 Time of Service: 08:55 DS: Diagnosis Discharge Diagnosis (1) Status post primary low transverse section: Status: Acute Asessment and Plan: Patient is postoperative day #2 status post primary low-transverse section due to labor arrest after induction of labor for oligohydramnios. During the course of her prolonged labor induction, she did have an episode of tachycardia and maternal fever. She received appropriate antibiotic therapy. She is discharged home postoperative day #2 ambulating, tolerating regular diet and oral pain medication with stable vital signs. She will need postoperative wound check in 2 days and 2 and 6 weeks. All questions were answered. Prescriptions for Motrin, Percocet, and Colace sent to the pharmacy. Her baby boy is being bottle-fed, and has been circumcised. (2) Category II heart rate tracing during labor and delivery: Status: Acute Asessment and Plan: Resolved (3) tachycardia affecting management of mother: Status: Acute Asessment and Plan: Resolved (4) Oligohydramnios: Status: Acute Asessment and Plan: Resolved Discharge Plan Disposition Patient Disposition: HOME Condition: Good Discharge Details Reason For Visit: Oligohydramnios, failed induction, c/s Admit Date/Time: 09/09/21 12:04 Admit Provider: Karina Malhotra Attending Provider: Karina Malhotra Primary Care Provider: Shameka Johnson Hospital Course Hospital Course: Patient is a 21-year-old primigravida female who was known to have oligohydramnios. She was admitted for labor induction and over the course of numerous days she received cervical ripening and Pitocin augmentation of her labor. During the course of her labor she was noted to have tachycardia, and maternal fever. This resolved after fluid hydration, IV antibiotics, however she did arrest her labor. She went on to her primary low-transverse section delivering a viable male . Her postoperative course was uncomplicated and she was discharged home postoperative day #2 ambulating, tolerating regular diet and oral pain medication with stable vital signs. She was afebrile at discharge. She will be seen in the office for close follow-up for wound examination in 2 days, visits in 2 and 6 weeks as well. All questions were answered Home Meds and New Rx's Prescriptions: New ibuprofen 800 mg tablet 800 mg PO Q8H PRNQty: 45 1RF oxycodone-acetaminophen [Percocet] 5-325 mg tablet 1 tab PO Q8H PRNQty: 10 0RF docusate sodium [Colace] 100 mg capsule 100 mg PO BID Qty: 30 1RF Continued PrePlus 27 mg iron- 1 mg tablet 1 tab PO DAILY Qty: 90 3RF Rx Instructions: give with food (meal/snack) Discontinued aspirin 81 mg tablet,delayed release (DR/EC) 81 mg PO DAILY Qty: 60 3RF Rx Instructions: take one tab daily and two tabs every other day Discharge Instructions Additional Instructions: Follow-up with Dr. Thomas in the office 09/17, or 09/18. Will need 2 and 6-we ek postoperative, follow-up Stand Alone Forms: BC Discharge Instruc Activity:: Pelvic rest and no heavy Equipment/Supplies:: No Equipment Needed Diet:: As Tolerated Discharge Orders Discharge Orders: Discharge Order (Routine); Ordered 09/14/21 Ordered By: Rosa Urrutia OB:DS Summary Summary Episiotomy Description: None Laceration Description: None Laceration Extension: N/A Contraception Discussed Contraception Discussed: Yes Contraceptive Plan: IUD, [place] Infant Gender-Baby A: Male weight: 9 lb 12.616 oz Status at Discharge Functional status at discharge: independent ambulation Overall status at discharge: patient is progressing back to baseline Mental Status: mental status grossly normal Speech and Movement: speech and movement normal Mood: congruent mood Affect: normal affect Exam Physical Exam Vital signs: Temp Pulse Resp BP Pulse Ox 98.6 F 98 H 18 113/77 100 09/13/21 23:30 09/13/21 23:30 09/13/21 23:30 09/13/21 23:30 09/13/21 23:30 Narrative: Please see physical exam dated 09/14/2021 on progress note. PFSH All Active Problems (Updated 09/12/21 @ 07:59 by Summer Anaya MD) Status post primary low transverse section (Acute) Category II heart rate tracing during labor and delivery (Acute) tachycardia affecting management of mother (Acute) Maternal fever affecting labor (Acute) Encounter for elective induction of labor (Acute) Oligohydramnios (Acute) Amniotic fluid index borderline low (Acute) Group B streptococcal carriage complicating (Acute) Tinea versicolor (Acute) back of neck, underneath breasts bilaterally Family history of hypertension (Acute) extensive HTN in pt's immediate and extended family Sciatica of right side (Acute) refered to PT 02/20/21 Allergy to amoxicillin (Acute) Pt reports allergy is a skin rash, historically. Referred to [facility] for allergy testing 02/20/21 BMI 37.0-37.9, adult (Acute) (Acute) Medical History (Updated 09/12/21 @ 07:59 by Summer Anaya MD) Abdominal pain Contraception Diarrhea Rferred [facility] 08/2020-->11/13/20 letter from [facility] stating they hadn't heard from pt (vmail mailbox full) Low lying placenta nos or without hemorrhage, second trimester Size of fetus inconsistent with dates in third trimester Surgical History (Updated 09/13/21 @ 11:05 by Rosa Urrutia DO) Appendectomy (09/02/14) Hx of tonsillectomy (~03/2015) Family History Father Hyperlipidemia Lung cancer metastasized to liver and bone Diabetes Hypertension Asthma Mother Thyroid disorder Paternal Cousin Breast cancer Maternal Uncle No problems noted. Paternal Grandfather , [place] (in his 70s?) Heart disease Social History Smoking/Tobacco Use Status: Former Tobacco Use tobacco type: e-cigarettes Quit Date: 03/02/18 Tobacco: How many years used: 4 Quit status: has quit before Second Hand Exposure: Yes Smoking risk assessment performed?: Yes Alcohol Intake: current Alcohol Intake frequency: holidays/special occasions only Drug use: Never Substance use type: does not use Details: no IV drug use Adopted: No Caregiver/Support person: No Foster care: No Household members: significant other Housing: house Number of Children: 0 Communication Needs: Corrective Lenses Education Level: college Details: some Do you need help understanding health information?: Never 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 Pets and animals: Yes Pets and animals: cat(s) Sexually active: Yes Do you think of yourself as: straight/heterosexual Current gender identity: female What is your relationship status?: living with partner Panel score (0-1 are the most socially isolated patients): 1 What type of physical activity do you participate in: regular exercise and other Details: softball 2 nights/week Duration: 60-90 minutes/day Frequency: 1-2 times per week Seatbelt use: never Drive intox or ride w/intox school bus driver: No Water heater temp set <120 deg: Yes Working smoke detector in home: Yes Fire extinguisher in home: Yes Carbon monox detector in home: Yes Firearms in home: No Do you feel safe at home: Yes Do you feel safe in your relationship?: Yes Additional Social history: Confirmed 09/09/21 History History 1 Para 0 Hx # Term Pregnancies 0 Multiple births 0 Hx # Pregnancies 0 Ectopic pregnancies 0 AB induced 0 Hx Number of Living Children 0 AB spontaneous 0 DS: Data Vitals/I&O Vitals and I&O: Vital Signs Temperature 98.6 F 09/13/21 23:30 Pulse 98 H 09/13/21 23:30 Pulse Rhythm Regular 09/13/21 08:00 Respiratory Rate 18 09/13/21 23:30 Blood Pressure 113/77 09/13/21 23:30 Blood Pressure Mean 89 09/13/21 23:30 Pulse Oximetry 100 09/13/21 23:30 Pain Level 5 09/13/21 15:39 Comment 09/12/21 05:50 Intake & Output 09/13/21 09/13/21 09/14/21 11:59 23:59 11:59 Intake Total 1138 / 1138 Output Total 2050 / 3700 1650 / 3700 Balance -912 / -2562 -1650 / -2562 Intake: IV 1138 / 1138 Output: Urine 2050 / 3700 1650 / 3700 Other: Urine Color Yellow Urine Appearance Clear Data Completed and Pending Labs on day of discharge: Labs from last 24 hours 09/13/21 17:00 WBC 16.35 H RBC 3.87 L Hgb 10.6 L Hct 31.9 L MCV 82 MCH 27.4 MCHC 33.2 RDW 14.6 Plt Count 257 MPV 10.2 Immature Gran % 1.0 Neutrophils % 70.3 Lymphocytes % 20.2 Monocytes % 7.0 Eosinophils % 1.2 Basophils % 0.3 Nucleated RBC % 0.0 Absolute Neutrophils 11.49 H Absolute Lymphocytes 3.30 Absolute Monocytes 1.14 H Absolute Eosinophils 0.20 Absolute Basophils 0.05
[2021-09-14 09:00] VITALS: BP 115/80; PULSE 81; RESP 16; TEMP 37
[2021-09-14] MEDS: oxyCODONE 5 mg/Acetaminophen 325 mg TAB PO ×2 (09:35→11:05)
[2021-09-14] MEDS: Docusate Sodium 100 MG CAP PO (09:40)
--- NOTE | 2021-09-17 14:04 | W.PM.OP ---
Date of service: 09/12/21 Time of Service: 07:30 Operative Note Operative Note DATE OF PROCEDURE: 09/12/21 PRE-OP DIAGNOSIS: Arrest of labor, Cat 2 FHT remote from delivery LGA baby PROCEDURE: Primary section SURGEON: Summer Anaya ASSISTING SURGEON: Karina Preston ANESTHESIA TYPE: Spinal Refer to Anesthesia Record ESTIMATED BLOOD LOSS: 800 COMPLICATIONS: None Patient was transported to: floor Patient's condition: stable Implants: None Indications: Pt underwent induction of labor for oligohydramnios.? She progressed to 4cm and underwent AROM @10:30 on 09/11/21 as she was not progressing further.? Then she continued on pitocin and received an epidural in the evening. Her ctxs were not adequate but she was unable to tolerate more at the time.? After the epidural the pitocin was increased but the baby had intermittent late and variable decels and some periods of tachycardia and minimal variability.? Pitocin was turned off.? She then had a temp of 99.4.? Difficulty was had in placing internal monitors but eventually an IUPC was successful and an amnioinfusion was started.? She was on Kefzol for GBS ppx and she got a dose of clindamycin and gentamicin for suspected chorioamnionitis.? The pt wanted to rest and then eventually opted for a CS rather then repeat trial of pitocin.? She was only 6cm and the baby was unable to tolerate adequate contractions. Findings: Male infant, 9lb 13oz. Normal appearing uterus, ovaries and tubes. Normal appearing placenta with 3 vessel cord. Procedure Description: After informed consent was signed the patient was taken to the operating room. She was given spinal anesthesia, SCDs were placed on her legs and a blount catheter was introduced into her bladder. The heart rate was checked and was normal. She underwent abdominal and vaginal prep and was draped in the dorsal supine position with a leftward tilt. The patient was tested and spinal anesthesia was found to be adequate. A time out was performed. A skin incision was made with the scalpel and carried down to the underlying layer of fascia with blunt dissection. The fascia was incised on either side of the midline and the fascial incision extended laterally with a combination of sharp and blunt dissection. The inferior edge of the fascia was grasped with renee clamps and tented up and dissected down with a combination of sharp and blunt dissection. Then the superior edge of the fascial incision was grasped with renee clamps and tented up and dissected down with a combination of sharp and blunt dissection. The rectus muscles were in the midline and the peritoneum was entered bluntly. The peritoneal incision was extended laterally with blunt dissection. The bladder blade was inserted. A transverse incision was made in the lower uterine segment with the scalpel. The incision was extended superiorly and inferiorly with blunt pressure. The infants head delivered with fundal pressure followed by the shoulders and the rest of the body. The cord was milked toward the baby and after 1min it was clamped x2 and cut. The baby was handed to the golf ball cover treater. Cord blood was collected. The placenta delivered with fundal massage and gentle cord traction and appeared to be intact. The uterus was exteriorized and cleared of clots and debris. The uterine incision was closed with 0-vicryl in a running locked fashion with a second layer of suture imbricating the first. Good hemostasis was noted. The abdomen was irrigated. The uterus was placed back into the abdominal cavity. The incision was inspected once again and good hemostasis was noted. There was good hemostasis of the rectus muscles. The fascia was closed with 0-vicryl in a running unlocked fashion. The subcuticular layer was irrigated and closed with interrupted sutures of 3-0 vicryl. The skin was closed with 4-0 vicryl in a running subcuticular fashion. The incision was cleaned. Mastisol and steristrips were placed. A dressing was placed. The fundus was palpated to be firm. The patient was moved to the stretcher and taken to the recovery room in stable condition.
== END 2021-09-14 11:45 | disposition home or self-care (01) | DRG 786 ==
LOC: OBS 14:48 → BCD 16:59
PROVIDERS: Obstetrics & Gynecology; Admitting Provider Advanced Practice Midwife; PCP Nurse Practitioner Adult Health; Visit Provider Advanced Practice Midwife
PROC: 10D00Z1 Extraction of Products of Conception, Low, Open Approach (ICD-10-PCS; CPT 59514; principal; 2021-09-12 08:00)
DX: O41.03X0 Oligohydramnios, third trimester, not applicable or unspecified (principal); O99.42 Diseases of the circulatory system complicating childbirth; O75.2 Pyrexia during labor, not elsewhere classified; Z37.0 Single live birth; O36.63X0 Maternal care for excessive fetal growth, third trimester, not applicable or unspecified; Z3A.40 40 weeks gestation of pregnancy; O61.0 Failed medical induction of labor; O99.824 Streptococcus B carrier state complicating childbirth; O76 Abnormality in fetal heart rate and rhythm complicating labor and delivery; O62.1 Secondary uterine inertia
CPT/HCPCS: 59514; 36415; 85027; 86850; 86900; 86901; 87635; 59025; 85025; 88307; J0690; J1100; J1580; J1885; J2370; J2405; J3010; J3490

== ENCOUNTER 2022-03-04 07:55 | Emergency (ER) | payer OTHER, MEDICAID, SELFPAY ==
[2022-03-04 08:11] VITALS: BP 124/78; PULSE 110; RESP 18; TEMP 36.6; O2SAT 98
--- NOTE | 2022-03-04 09:06 | ED.GENADUL_ITS ---
Discharge Plan Disposition Patient Disposition: Home Condition: Stable Discharge Details Clinical Impression: Influenza A Primary Care Provider: Shameka Johnson ED Provider: Delgado Bloom Home Meds and New Rx's Prescriptions: New Xofluza 80 mg tablet 80 mg PO ONCE Qty: 1 0RF Rx Instructions: as a single dose Continued norgestimate-ethinyl estradiol [Sprintec (28)] 0.25-35 mg-mcg tablet 1 tab PO DAILY Qty: 84 3RF nystatin 100,000 unit/gram cream 1 applic topical BID Qty: 30 2RF ibuprofen 800 mg tablet 800 mg PO Q8H PRNQty: 45 1RF Discharge Instructions Instructions: Influenza (ED) Additional Instructions: During influenza illness please stay well rested and drink plenty of fluids to prevent dehydration. You may use [id number] medications as needed for your symptoms and continue to take acetaminophen or ibuprofen for fever or pain control again only as needed. Return to the emergency department for any new or significant worsening of your symptoms otherwise follow-up with your primary care provider for reassessment if not improving in the next week Stand Alone Forms: Work Release Referrals: Shameka Johnson, [employer] [Primary Care Provider] - (If not improving in the next week please follow-up with your primary care provider for reassessment) Medical Decision Making Patient presenting to the emergency department for chief complaint of fever over the last 24 hours. She states that she has had some ongoing nasal congestion and cough which does not seem to have worsened but over the last 24 hours developed a fever. Patient denies all other symptoms. Physical exam is unremarkable beyond some mild tachycardia. Suspect viral illness and rapid antigen testing was performed and patient is flu a positive. Vital signs are stable beyond mild tachycardia, no hypotension, no hypoxia, no tachypnea, and patient is well in appearance with no signs of distress. Do not feel that any emergent interventions are required. Given that patient is within the 48-hour window will prescribe Xofluza and give patient work note to allow for time off work. After discussion of diagnosis and plan of care patient has no further needs, questions, or concerns and states clear understanding to return to the emergency department for any worsening symptoms. This documentation was generated using [employer] system, please disregard any oddities of phrase or misspellings. HPI General Mode of arrival: ambulatory . Date/Time Provider Initiated Documentation: 03/04/22 08:17 . Limitations to Documentation: no limitations . Information obtained by: patient and RN notes reviewed . History of Present Illness 21 year old F presents to the emergency department with the chief complaint of fever, described as moderate, Patient started experiencing this day(s) (1) and it has been constant. Medication improves symptom(s), No exacerbating factors reported . Patient did receive the following treatments prior to arrival, other (Acetaminophen) Related Data Home Medications Medication Instructions Recorded Confirmed ibuprofen 800 mg tablet 800 mg PO Q8H PRN #45 tabs 09/14/21 03/04/22 nystatin 100,000 unit/gram topical 1 applic topical BID #30 grams 10/04/21 03/04/22 cream norgestimate 0.25 mg-ethinyl 1 tab PO DAILY #84 tabs 10/24/21 03/04/22 estradiol 35 mcg tablet (Sprintec (28)) baloxavir marboxil 80 mg tablet 80 mg PO ONCE #1 tab 03/04/22 (Xofluza) Previous Rx's Medication Instructions Recorded ibuprofen 800 mg tablet 800 mg PO Q8H PRN #45 tabs 09/14/21 nystatin 100,000 unit/gram topical 1 applic topical BID #30 grams 10/04/21 cream norgestimate 0.25 mg-ethinyl 1 tab PO DAILY #84 tabs 10/24/21 estradiol 35 mcg tablet (Sprintec (28)) baloxavir marboxil 80 mg tablet 80 mg PO ONCE #1 tab 03/04/22 (Xofluza) Allergies Allergy/AdvReac Type Severity Reaction Status Date / Time amoxicillin [Amoxicillin] Allergy Unknown Skin Rash Verified 03/04/22 08:15 General Stated Complaint: Fever JENNIFER: 3 Review of Systems Constitutional Constitutional: Denies body ache(s), Reports chills, Reports fever(s), Denies headache(s) and Reports malaise Eyes Eyes: Denies eye discharge ENT Ears, Nose, Mouth, and Throat: Reports as per HPI, Denies ear discharge, Denies otalgia, Denies headache(s), Reports nasal congestion, Denies nasal discharge, Denies neck pain, Denies sore throat and Denies throat swelling Cardiovascular Cardiovascular: Denies chest pain and Denies dyspnea Respiratory Respiratory: Reports cough and Denies dyspnea Gastrointestinal Gastrointestinal: Denies abdominal pain, Denies nausea and Denies vomiting Musculoskeletal Musculoskeletal: Denies joint swelling and Denies neck pain Integumentary/Breasts Skin/Breast: Denies rash Neurologic Neurologic: Denies headache(s) Allergic/Immunologic Allergic/Immunologic: Denies throat swelling PFSH All Active Problems Influenza A (Acute) Yeast dermatitis (Acute) Status post primary low transverse section (Acute) Tinea versicolor (Acute) back of neck, underneath breasts bilaterally BMI 37.0-37.9, adult (Acute) Medical History Allergy to amoxicillin Pt reports allergy is a skin rash, historically. Referred to [facility] for allergy testing 02/20/21 Amniotic fluid index borderline low Diarrhea Rferred [facility] GI 08/2020-->11/13/20 letter from [facility] stating they hadn't heard from pt (vmail mailbox full) Family history of hypertension extensive HTN in pt's immediate and extended family Sciatica of right side refered to PT 02/20/21 Surgical History Appendectomy (09/02/14) Hx of tonsillectomy (~03/2015) Family History Father Hyperlipidemia Lung cancer metastasized to liver and bone Diabetes Hypertension Asthma Mother Thyroid disorder Paternal Cousin Breast cancer Maternal Uncle No problems noted. Paternal Grandfather , [place] (in his 70s?) Heart disease Social History Smoking/Tobacco Use Status: Former Tobacco Use tobacco type: e-cigarettes Quit Date: 03/02/18 Tobacco: How many years used: 4 Quit status: has quit before Second Hand Exposure: Yes Smoking risk assessment performed?: Yes Alcohol Intake: current Alcohol Intake frequency: holidays/special occasions only Drug use: Never Substance use type: does not use Details: no IV drug use Adopted: No Caregiver/Support person: No Foster care: No Household members: significant other Housing: house Number of Children: 0 Communication Needs: Corrective Lenses Education Level: college Details: some Do you need help understanding health information?: Never 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 Pets and animals: Yes Pets and animals: cat(s) Sexually active: Yes Do you think of yourself as: straight/heterosexual Current gender identity: female What is your relationship status?: living with partner Panel score (0-1 are the most socially isolated patients): 1 What type of physical activity do you participate in: regular exercise and other Details: softball 2 nights/week Duration: 60-90 minutes/day Frequency: 1-2 times per week Seatbelt use: never Drive intox or ride w/intox 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 Date GA/Weeks # Preg Succ Route Wgt Sex Labor Lgth [facility]esth [facility] 41 No Yes 4450.875 g Male Home Anaya MD Delivery Date: 09/12/21 Last Updated by: Nan Sutton Induction for oligohydramnios, progressed to 6 cm and had Category II strip and maternal fever, taken for Exam Const General: cooperative, comfortable and no acute distress Orientation: alert and awake [facility] Head: normal to inspection, normocephalic and atraumatic Ears: hearing grossly normal bilaterally and TM's normal bilaterally General nose exam: external nose normal Face and sinus: no erythema Mouth: oral mucosae normal, no drooling, no muffled voice and no trismus Throat: posterior oropharynx normal Neck Neck: normal visual inspection, full ROM, no lymphadenopathy, no meningeal signs, trachea midline and supple Resp Effort & Inspection: normal respiratory effort and able to speak in complete sentences Auscultation: clear to auscultation bilaterally Cardio Rate: tachycardic Rhythm: regular rhythm Heart Sounds: S1 normal, S2 normal, normal S1 and S2, no murmurs and no rubs Skin General skin exam: no rashes or lesions noted and dry skin (warm) Neuro General: patient alert, patient awake, patient oriented x3, gait normal and moves all extremities Cognition: normal cognition Speech: speech normal Course Vital Signs Vital signs: Vital Signs Temperature 36.6 C 03/04/22 08:11 Pulse 110 H 03/04/22 08:11 Respiratory Rate 18 03/04/22 08:11 Blood Pressure 124/78 03/04/22 08:11 Pulse Oximetry 98 03/04/22 08:11 Temperature 36.6 C 03/04/22 08:11 Temperature Source Oral 03/04/22 08:11 Pulse 110 H 03/04/22 08:11 Respiratory Rate 18 03/04/22 08:11 Respiratory Effort Non-Labored 03/04/22 08:16 Blood Pressure 124/78 03/04/22 08:11 Blood Pressure Position Sitting 03/04/22 08:11 Pulse Oximetry 98 03/04/22 08:11 Oxygen Delivery Method Non-Rebreather 03/04/22 08:11 PAWSS Have you Been Recently Intoxicated or Drunk Within the Last 30 days?: No Have you Ever Experienced Previous Episodes of Alcohol Withdrawal?: No Have you ever Experienced Withdrawal Seizures?: No Have you ever Experienced Delirium Tremens(DT)s?: No Have you ever undergone Alcohol Rehabilitation Treatment (i.e, inpt ot outpatient treatment programs)?: No Have you ever Experienced Blackouts?: No Have you ever Combined Alcohol with other Downers within the last 90 days?: No Have you ever Combined Alcohol with any other Substance of Abuse during the last 90 days?: No Positive Blood Alcohol level on Presentation? [PCS.BAL]: No Evidence of Increased Autonomic Activity (i.e. HR>120, tremor, sweating, agitation, nausea)?: No Result: 0
== END 2022-03-04 09:36 | disposition home or self-care (01) ==
PROVIDERS: Emergency Provider Nurse Practitioner Family; PCP Nurse Practitioner Adult Health
DX: J10.1 Influenza due to other identified influenza virus with other respiratory manifestations (principal)
CPT/HCPCS: 99283

== ENCOUNTER 2022-06-13 08:06 | Emergency (ER) | payer OTHER, MEDICAID, SELFPAY ==
[2022-06-13 08:21] VITALS: BP 136/83; PULSE 85; RESP 18; TEMP 37.3; O2SAT 98
[2022-06-13 08:30] LABS: Bilirubin Negative (Negative); Blood Negative (Negative); Clarity Clear (Clear); Glucose Negative (Negative); Ketones Negative (Negative); Leukocyte Esterase Negative (Negative); Nitrite Negative (Negative); Specific Gravity 1.025 (1.005-1.025); Urobilinogen 0.2 mg/dL (Up to 0.2)
--- NOTE | 2022-06-13 08:43 | ED.GENADUL_ITS ---
Discharge Plan Disposition Patient Disposition: Home Condition: Stable Discharge Details Clinical Impression: Low back pain, Constipation, Difficulty in urination Primary Care Provider: Shameka Johnson ED Provider: Leeann Montgomery Home Meds and New Rx's Prescriptions: Continued nystatin 100,000 unit/gram cream 1 applic topical BID Qty: 30 2RF norgestimate-ethinyl estradiol [Sprintec (28)] 0.25-35 mg-mcg tablet 1 tab PO DAILY Qty: 84 3RF ibuprofen 800 mg tablet 800 mg PO Q8H PRNQty: 45 1RF Discharge Instructions Instructions: Constipation (ED), Low Back Strain (ED) Additional Instructions: Your urine sample shows no evidence of infection. Drink plenty of fluids and get plenty of rest. Alternate tylenol and motrin as needed and directed for pain. You can try [id number] MiraLAX daily to help with constipation. You could also try stool softener such as Colace, suppositories or enema. Follow-up with your primary care doctor in 1 week. Return to the emergency department with any worsening or new concerning symptoms such as fever, persistent vomiting, abdominal pain or any other concerns. Discharge Data Discharge Physician: Leeann Montgomery Medical Decision Making 22-year-old female with a history of appendectomy and presents for bilateral lower back pain with radiation to bilateral groin with difficulty with urination and having a bowel movement this morning. She does endorse that she has had alternating diarrhea, constipation and abdominal pain for the past few years and is scheduled to see [facility] for a colonoscopy in the next few mon ths. Patient appears comfortable and nontoxic. Her abdomen is soft, obese and is tender in the right lower quadrant. She has no CVA tenderness. Discussed with patient at length that differential diagnosis can include UTI, pyelonephritis, ovarian cyst, bowel gas, muscle strain. Discussed that her history and presentation does not appear to typical of a kidney stone, ovarian torsion. Without report of vaginal discharge, pelvic pain or fever, cervicitis or urethritis seems unlikely. She has no cauda equina symptoms or focal deficits to suggest cauda equina syndrome. Discussed that we can obtain labs and CT imaging for further evaluation but she would rather hold on this and start with a urine sample. Urine test negative. Urinalysis negative. Discussed with patient at length that her urine sample is negative for infection essentially ruling out UTI or pyelonephritis. She did state that when she gave a urine sample here she did not have difficulty with urination. Discussed that we can obtain lab work, pelvic ultrasound or CT for further evaluation although she declines. She was offered ibuprofen and declines. Patient states she feels the pain in her back more with sitting down while trying to have a bowel movement or urinate. Discussed that this could be muscular in nature. She is advised to alternate ice and heat, Tylenol and Motrin. She was advised to return here immediately if she develops any worsening or new concerning symptoms. Medical Records Medical records reviewed: Yes I reviewed the patient's medical records. Lab Data Lab results reviewed: Yes I reviewed the patient's lab results. Labs: Laboratory Tests Range/Units 06/13/22 08:15 Urine Color (Yellow) Yellow Urine Clarity (Clear) Clear Urine pH (5-8) 6.0 Ur Specific [place] (1.005-1.025) 1.025 Urine Protein (Negative) mg/dL Negative Urine Ketones (Negative) mg/dL Negative Urine Blood (Negative) Negative Urine Nitrite (Negative) Negative Urine Bilirubin (Negative) Negative Urine Urobilinogen (Up to 0.2) mg/dL 0.2 Ur Leukocyte Esterase (Negative) Negative Urine Glucose (Negative) mg/dL Negative HPI General Mode of arrival: ambulatory . Date/Time Provider Initiated Documentation: 06/13/22 08:13 . Limitations to Documentation: no limitations . Information obtained by: patient . HPI Narrative: Patient is a 22-year-old female who presents with bilateral lower back pain which radiates around to both sides of her groin that she noted upon awakening this morning. She states the pain feels intermittent, crampy and achy and is currently 7/10. She denies any aggravating or alleviating factors. She has not taken any medication for pain. She also states when she attempted to urinate this morning she felt difficulty getting the urine out . She also states that she thought she needed to have a bowel movement but was having difficulty getting the poop out . Patient states she has had issues with her bowels for the past 3 to 4 years in which she has alternating watery diarrhea and constipation. She states she is scheduled to see [facility] in the next few months with plan for colonoscopy. She states she has not received any diagnosis for alternating diarrhea, constipation and abdominal pain and denies any family history of inflammatory bowel disease, gluten intolerance or celiac disease. Patient states she has noted for the last week she has had more constipation. She denies any fever, nausea, vomiting, dysuria, hematuria, frequency, urgency, vaginal discharge or genital lesions. Related Data Home Medications Medication Instructions Recorded Confirmed ibuprofen 800 mg tablet 800 mg PO Q8H PRN #45 tabs 09/14/21 06/13/22 nystatin 100,000 unit/gram topical 1 applic topical BID #30 grams 04/01/22 06/13/22 cream norgestimate 0.25 mg-ethinyl 1 tab PO DAILY #84 tabs 05/06/22 06/13/22 estradiol 35 mcg tablet (Sprintec (28)) Previous Rx's Medication Instructions Recorded ibuprofen 800 mg tablet 800 mg PO Q8H PRN #45 tabs 09/14/21 nystatin 100,000 unit/gram topical 1 applic topical BID #30 grams 04/01/22 cream norgestimate 0.25 mg-ethinyl 1 tab PO DAILY #84 tabs 05/06/22 estradiol 35 mcg tablet (Sprintec (28)) Allergies Allergy/AdvReac Type Severity Reaction Status Date / Time amoxicillin [Amoxicillin] Allergy Unknown Skin Rash Verified 06/13/22 08:24 General Stated Complaint: Urinary JENNIFER: 3 Review of Systems All systems reviewed & are unremarkable except as noted in HPI and below Constitutional Constitutional: Reports as per HPI, Denies chills and Denies fever(s) Eyes Eyes: Denies blurry vision ENT Ears, Nose, Mouth, and Throat: Denies dizziness, Denies sore throat and Denies throat swelling Cardiovascular Cardiovascular: Denies chest pain and Denies dyspnea Respiratory Respiratory: Denies cough and Denies dyspnea Gastrointestinal Gastrointestinal: Denies abdominal pain, Reports constipation, Denies diarrhea and Denies vomiting Genitourinary Genitourinary: Denies hematuria, Denies dysuria and Reports urinary hesitancy Musculoskeletal Musculoskeletal: Reports back pain and Denies numbness Integumentary/Breasts Skin/Breast: Denies lesions and Denies rash Neurologic Neurologic: Denies dizziness, Denies localized weakness and Denies numbness Allergic/Immunologic Allergic/Immunologic: Denies throat swelling PFSH All Active Problems (Updated 06/13/22 @ 09:00 by Leeann Montgomery DO) Low back pain (Acute) Constipation (Acute) Difficulty in urination (Acute) Diarrhea (Acute) Rferred [facility] 08/2020-->11/13/[address] [facility] stating they hadn't heard from pt (vmail mailbox full); pt was 04/2022--re-referred BMI 37.0-37.9, adult (Acute) Medical History Allergy to amoxicillin Pt reports allergy is a skin rash, historically. Referred to [facility] for allergy testing 02/20/21 Amniotic fluid index borderline low Family history of hypertension extensive HTN in pt's immediate and extended family Sciatica of right side refered to PT 02/20/21 Tinea versicolor back of neck, underneath breasts bilaterally Yeast dermatitis Surgical History Appendectomy (09/02/14) Hx of tonsillectomy (~03/2015) Status post primary low transverse section (~08/2021) Family History Father Hyperlipidemia Lung cancer metastasized to liver and bone Diabetes Hypertension Asthma Mother Thyroid disorder Paternal Cousin Breast cancer Maternal Uncle No problems noted. Paternal Grandfather , [place] (in his 70s?) Heart disease Social History Smoking/Tobacco Use Status: Former Tobacco Use tobacco type: e-cigarettes Quit Date: 03/02/18 Tobacco: How many years used: 4 Quit status: has quit before Second Hand Exposure: Yes Smoking risk assessment performed?: Yes Alcohol Intake: current Alcohol Intake frequency: holidays/special occasions only Drug use: Never Substance use type: does not use Details: no IV drug use Adopted: No Caregiver/Support person: No Foster care: No Household members: significant other Housing: house Number of Children: 0 Communication Needs: Corrective Lenses Education Level: college Details: some Do you need help understanding health information?: Never 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 Pets and animals: Yes Pets and animals: cat(s) Sexually active: Yes Do you think of yourself as: straight/heterosexual Current gender identity: female What is your relationship status?: living with partner Panel score (0-1 are the most socially isolated patients): 1 What type of physical activity do you participate in: regular exercise and other Details: softball 2 nights/week Duration: 60-90 minutes/day Frequency: 1-2 times per week Seatbelt use: never Drive intox or ride w/intox 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 Date GA/Weeks # Preg Succ Route Wgt Sex Labor Lgth Anesth esia Location [facility] 09/12/21 41 No Yes 4450.875 g Male Home Anaya MD Delivery Date: 09/12/21 Last Updated by: Nan Sutton Induction for oligohydramnios, progressed to 6 cm and had Category II strip and maternal fever, taken for Exam Const General: cooperative, healthy appearing and no acute distress Orientation: alert, awake and oriented x3 HENMT Head: normal to inspection Face and sinus: normal facial exam Eyes General: appearance normal, both eyes and all related structures Pupils: PERRL EOM: EOM intact bilaterally Neck Neck: normal visual inspection and No submandibular swelling Lymphatic: no lymphadenopathy noted Chest Chest: normal inspection of the chest and no tenderness Resp Effort & Inspection: normal respiratory effort and able to speak in complete sentences Auscultation: clear to auscultation bilaterally Cardio Rate: regular rate Rhythm: regular rhythm GI Inspection: normal to inspection Palpation: soft, not firm, not rigid and tender in the RLQ Auscultation: hypoactive bowel sounds Back/Spine/Pelvis Back: no CVA tenderness Thoracic/Lumbar Spine: thoracic and lumbar spine normal to inspection Skin General skin exam: no rashes or lesions noted Neuro General: patient alert, patient awake and patient oriented x3 Cognition: normal cognition Speech: speech normal Motor: muscle tone normal throughout Sensory Exam: no sensory deficits noted Extrem General: normal to inspection, full ROM, capillary refill normal, no calf tenderness bilaterally and no edema Psych Appearance: grossly normal Mental Status: mental status grossly normal Speech and Movement: speech and movement normal Affect: normal affect Course Vital Signs Vital signs: Vital Signs Temperature 99.2 F 06/13/22 08:21 Pulse 85 06/13/22 08:21 Respiratory Rate 18 06/13/22 08:21 Blood Pressure 136/83 06/13/22 08:21 Pulse Oximetry 98 06/13/22 08:21 Temperature 99.2 F 06/13/22 08:21 Temperature Source Oral 06/13/22 08:21 Pulse 85 06/13/22 08:21 Respiratory Rate 18 06/13/22 08:21 Blood Pressure 136/83 06/13/22 08:21 Blood Pressure Position Sitting 06/13/22 08:21 Pulse Oximetry 98 06/13/22 08:21 Oxygen Delivery Method Room Air 06/13/22 08:21 Oxygen Flow Rate 0 06/13/22 08:21 Pain Level 7 06/13/22 08:21 Lab/Test Results Lab/Test Results: Laboratory Tests Range/Units 06/13/22 08:15 Urine Color (Yellow) Yellow Urine Clarity (Clear) Clear Urine pH (5-8) 6.0 Ur Specific [place] (1.005-1.025) 1.025 Urine Protein (Negative) mg/dL Negative Urine Ketones (Negative) mg/dL Negative Urine Blood (Negative) Negative Urine Nitrite (Negative) Negative Urine Bilirubin (Negative) Negative Urine Urobilinogen (Up to 0.2) mg/dL 0.2 Ur Leukocyte Esterase (Negative) Negative Urine Glucose (Negative) mg/dL Negative POC- Test(urine) Negative
[2022-06-13 09:03] VITALS: BP 136/83; PULSE 85; RESP 18; TEMP 37.3; O2SAT 98
== END 2022-06-13 09:36 | disposition home or self-care (01) ==
PROVIDERS: Emergency Provider Physician Assistant; PCP Nurse Practitioner Adult Health
DX: M54.50 Low back pain, unspecified (principal); K59.00 Constipation, unspecified; R39.198 Other difficulties with micturition; E66.9 Obesity, unspecified
CPT/HCPCS: 81025; 96361; 96374; 96375; 99284; 81003

== ENCOUNTER 2022-06-13 09:52 | Outpatient (CLI) | payer OTHER, MEDICAID, SELFPAY ==
[2022-06-16 10:34] LABS: IgA 72 mg/dL (85-499); IgG 1202 mg/dL (610-1616)
[2022-06-16 14:12] LABS: Tissue Transglutaminase IgA <1.2 U/mL (<4.0)
== END 2022-06-13 09:53 | disposition home or self-care (01) ==
LOC: LBO 09:53
PROVIDERS: PCP Nurse Practitioner Adult Health; Visit Provider Nurse Practitioner Family
DX: R19.7 Diarrhea, unspecified (principal); G89.29 Other chronic pain; K58.0 Irritable bowel syndrome with diarrhea; R14.0 Abdominal distension (gaseous); R10.9 Unspecified abdominal pain
CPT/HCPCS: 36415; 82784

== ENCOUNTER 2023-06-15 06:00 | Outpatient (CLI) | payer OTHER, SELFPAY ==
[2023-06-15 10:08] LABS: Abs Immature Grans 0.04 10^3/uL (0.0-0.06); Absolute Basophil Count 0.03 10^3/uL (0.0-0.2); Absolute Eosinophil Count 0.13 10^3/uL (0.0-0.7); Absolute Lymphocyte Count 2.81 10^3/uL (1.2-3.4); Absolute Monocyte Count 0.33 10^3/uL (0.1-0.8); Absolute Neutrophil Count 6.73 10^3/uL (1.2-6.7); Basophils % 0.3; Eosinophils % 1.3; HCT 43.1 % (36.0-46.0); HGB 14.6 g/dL (11.2-15.7); Immature Grans % 0.4; Lymphocytes % 27.9; MCH 27.7 pg (27.0-33.0); MCHC 33.9 % (32.0-36.0); MCV 82 fL (80-95); MPV 9.2 fL (8.0-11.0); Monocytes % 3.3; Neutrophils % 66.8; Platelet Count 301 10^3/uL (130-400); RBC 5.28 10^6/uL (3.93-5.22); RDW 13.1 % (11.7-14.6); RDW-SD 38.8 fL; WBC 10.07 10^3/uL (4.4-10.8)
[2023-06-15 10:20] LABS: Glucose,1 Hr (Glucola) 139 mg/dL (80-140)
[2023-06-15 19:47] LABS: Hepatitis B Surface Ag Negative (Negative)
[2023-06-15 20:14] LABS: HIV-1/2 Ag & Ab Screen Negative (Negative)
[2023-06-15 20:20] LABS: Hepatitis C Ab w Rflx HCV PCR Negative (Negative)
[2023-06-16 10:18] LABS: Varicella IgG Antibody Positive (See Note)
[2023-06-16 10:21] LABS: Rubella IgG Ab (UVM) Positive (See Note)
[2023-06-17 20:54] LABS: Syphilis IgG w/Reflex Nonreactive (Nonreactive)
== END 2023-06-15 06:01 | disposition home or self-care (01) ==
LOC: LBO 06:00
PROVIDERS: PCP Nurse Practitioner Adult Health; Visit Provider Advanced Practice Midwife
DX: Z34.91 Encounter for supervision of normal pregnancy, unspecified, first trimester (principal)
CPT/HCPCS: 36415; 82950; 86787; 86803; 86850; 86900; 86901; 87340; 87389; 85025; 86762; 86780

== ENCOUNTER 2023-06-15 08:47 | Outpatient (REF) | payer OTHER, SELFPAY ==
[2023-06-16 12:51] LABS: Chlamydia Result Negative (Negative); GC Result Negative (Negative)
== END 2023-06-15 08:48 | disposition home or self-care (01) ==
LOC: LBN 08:47
PROVIDERS: PCP Nurse Practitioner Adult Health; Visit Provider Advanced Practice Midwife
DX: Z34.91 Encounter for supervision of normal pregnancy, unspecified, first trimester (principal); Z11.3 Encounter for screening for infections with a predominantly sexual mode of transmission; Z3A.11 11 weeks gestation of pregnancy
CPT/HCPCS: 87491; 87591; 87086

== ENCOUNTER 2023-10-05 03:12 | Outpatient (CLI) | payer OTHER, MEDICAID, SELFPAY ==
[2023-10-05 12:21] LABS: Abs Immature Grans 0.13 10^3/uL (0.0-0.06); Absolute Lymphocyte Count 2.76 10^3/uL (1.2-3.4); Absolute Monocyte Count 0.58 10^3/uL (0.1-0.8); Absolute Neutrophil Count 8.65 10^3/uL (1.2-6.7); Basophils % 0.2 %; Eosinophils % 1.1 %; HCT 40.4 % (36.0-46.0); HGB 13.4 g/dL (11.2-15.7); Immature Grans % 1.1 %; Lymphocytes % 22.5 %; MCH 27.9 pg (27.0-33.0); MCHC 33.2 % (32.0-36.0); MCV 84 fL (80-95); MPV 9.9 fL (8.0-11.0); Monocytes % 4.7 %; Neutrophils % 70.4 %; Platelet Count 309 10^3/uL (130-400); RBC 4.81 10^6/uL (3.93-5.22); RDW 14.2 % (11.7-14.6); RDW-SD 43.4 fL; WBC 12.28 10^3/uL (4.4-10.8)
[2023-10-05 12:28] LABS: Absolute Basophil Count 0.02 10^3/uL (0.0-0.2); Absolute Eosinophil Count 0.14 10^3/uL (0.0-0.7)
[2023-10-05 13:03] LABS: Glucose,1 Hr (Glucola) 110 mg/dL (80-140)
== END 2023-10-05 03:13 | disposition home or self-care (01) ==
LOC: LBO 03:12
PROVIDERS: Obstetrics & Gynecology; PCP Nurse Practitioner Adult Health; Visit Provider Obstetrics & Gynecology
DX: Z34.93 Encounter for supervision of normal pregnancy, unspecified, third trimester (principal)
CPT/HCPCS: 36415; 82950; 85025

== ENCOUNTER 2023-11-10 01:07 | Outpatient (CLI) | payer OTHER, MEDICAID, SELFPAY ==
--- NOTE | 2023-11-10 06:45 | DI.US_ITS ---
Exam(s) US OB MARINO WEIGHT EXAM: US OB MARINO WEIGHT CLINICAL HISTORY: GROWTH,HIGH BMI,Z34.90. TECHNIQUE: Transabdominal obstetrical ultrasound performed. COMPARISON: US US OB 2-3 TRIMESTER from 08/11/2023 US US OB F/U FACIAL/LVOT/RVOT from 08/18/2023 FINDINGS:: Number of fetuses: One. position: Vertex. Placental location: Fundal no evidence of previa. BIOMETRIC DATA: BPD: 83mm = 33+2 weeks HC: 316mm = 35+4 weeks AC: 301mm = 34+ 0 weeks FL: 60 mm = 31+3 weeks EFW: 2180 Gms = 74% Composite Age: 33+4 weeks HUMBERTO: 25 December 2023 Heart Rate: 154BPM Amniotic fluid index: 14.4 cm. Amount of fluid is visually within normal limits. IMPRESSION: size is slightly above the expected range. weight is within normal range. DATA REPOSITORY:
== END 2023-11-10 01:27 ==
LOC: DI 01:07
PROVIDERS: PCP Nurse Practitioner Adult Health; Visit Provider Obstetrics & Gynecology Gynecology
DX: Z34.93 Encounter for supervision of normal pregnancy, unspecified, third trimester (principal); Z3A.33 33 weeks gestation of pregnancy
CPT/HCPCS: 76816

== ENCOUNTER 2023-12-04 08:29 | Outpatient (REF) | payer OTHER, MEDICAID, SELFPAY | END 2023-12-04 08:30 | disposition home or self-care (01) | LOC: LBN 08:29 | PROVIDERS: PCP Nurse Practitioner Adult Health; Visit Provider Obstetrics & Gynecology | DX: Z34.93 Encounter for supervision of normal pregnancy, unspecified, third trimester (principal); Z3A.35 35 weeks gestation of pregnancy | CPT/HCPCS: 87081 ==

== ENCOUNTER 2023-12-08 02:02 | Outpatient (CLI) | payer OTHER, MEDICAID, SELFPAY ==
--- NOTE | 2023-12-08 06:30 | DI.US_ITS ---
Exam(s) US OB MARINO WEIGHT EXAM: US OB MARINO WEIGHT CLINICAL HISTORY: f/u growth,H/o large for gestational age,z34.90. TECHNIQUE: Transabdominal obstetrical ultrasound performed. COMPARISON: US US OB F/U FACIAL/LVOT/RVOT from 08/18/2023 US US OB MARINO WEIGHT from 11/10/2023 FINDINGS:: Number of fetuses: 1 position: Cephalic Placental location: Fundal/posterior, grade 1-2 no evidence of previa. BIOMETRIC DATA: BPD: 94, 38+ 1 HC: 347, 40+ 2 AC: 355 , 39+ 3 FL: 71, 36+ 3 EFW: 3566, greater than 97th percentile, Composite Age: 38+ 4 weeks HUMBERTO: 18 December 2023 Heart Rate: 144 Amniotic fluid index: 17.1. Visually, amount of fluid is within normal limits. IMPRESSION: size is above the expected range by approximately 2 weeks. weight is above the 97th percentile. DATA REPOSITORY:
== END 2023-12-08 02:22 ==
PROVIDERS: PCP Nurse Practitioner Adult Health; Visit Provider Obstetrics & Gynecology Gynecology
DX: Z34.93 Encounter for supervision of normal pregnancy, unspecified, third trimester (principal); Z3A.36 36 weeks gestation of pregnancy
CPT/HCPCS: 76816

== ENCOUNTER 2023-12-29 02:50 | Outpatient (CLI) | payer OTHER, MEDICAID, SELFPAY ==
[2023-12-29 11:26] LABS: HGB 14.5 g/dL (11.2-15.7); MCH 27.5 pg (27.0-33.0); MCHC 33.7 % (32.0-36.0); MCV 82 fL (80-95); MPV 10.1 fL (8.0-11.0); Platelet Count 252 10^3/uL (130-400); RBC 5.27 10^6/uL (3.93-5.22); RDW 14.2 % (11.7-14.6); RDW-SD 41.4 fL; WBC 10.97 10^3/uL (4.4-10.8)
== END 2023-12-29 02:51 | disposition home or self-care (01) ==
LOC: LBO 02:50
PROVIDERS: PCP Nurse Practitioner Adult Health; Visit Provider Obstetrics & Gynecology
DX: Z01.818 Encounter for other preprocedural examination (principal)
CPT/HCPCS: 36415; 85027; 86850; 86900; 86901

== ENCOUNTER 2023-12-30 06:00 | Inpatient (IN) | payer OTHER, MEDICAID, SELFPAY ==
[2023-12-30] VITALS (49 sets, daily range): BP systolic 90–126; BP diastolic 52–76; PULSE 71–109; RESP 17–20; TEMP 36.4–36.8; O2SAT 96–100; BMI 42.6
[2023-12-30] MEDS: AZITHROMYCIN 500 MG in Normal Saline 250 ML 250 MG IVPB (06:20)
[2023-12-30] MEDS: Lactated Ringers 1,000 ML 125 ML IV (06:23)
--- NOTE | 2023-12-30 07:05 | ANES.PREOP_ITS ---
General Info Date of Service Date Performed: 12/30/23 Height: 5 ft 2 in Weight: 105.687 kg Body Mass Index (BMI): 42.6 Surgical Procedure: Operation Date: 12/30/23 07:40 Proposed Procedure Side Surgeon p Repeat Section, Possible FRIDA Rosa Urrutia, Actual Procedure Side Surgeon p Repeat Section, Possible FRIDA Not Applicable Rosa Urrutia, Pre-Op Diagnosis Post-Op Diagnosis Repeat Delivery Meds Allergies and Home Medications Allergies Allergy/AdvReac Type Severity Reaction Status Date / Time amoxicillin (Amoxicillin) Allergy Unknown Skin Rash Verified 12/29/23 10:35 Home Medication ?Medication ?Instructions ?Recorded vitamin with calcium 1 tab PO DAILY #90 tabs 05/04/23 no.72-iron 27 mg-folic acid 1 mg tablet Current Visit Medications: Current Medications Generic Name Dose Route Start Last Admin Trade Name Freq PRN Reason Stop Dose Admin Ringer's Solution 1,000 mls @ 125 mls/hr 12/30/23 05:30 12/30/23 06:23 IV 125 mls/hr Q8H CEZAR Administration Azithromycin 500 mg/ Sodium 250 mls @ 83.333 mls/hr 12/30/23 06:45 12/30/23 06:20 Chloride IVPB 12/30/23 09:44 250 mls/hr ONCE ONE Administration Cefazolin Sodium/Dextrose 2 gm in 50 mls @ 100 mls/hr 12/30/23 06:45 Ancef Duplex IV 12/30/23 07:14 ONCE ONE IV Miscellaneous Supplies 1 each 12/30/23 04:15 Iv Access IV DIRECTED CEZAR Sodium Chloride 0 ml 12/30/23 04:10 Normal Saline Flush 10 Ml Syr IVP PRN PRN Sodium Chloride 0 ml 12/30/23 04:10 Normal Saline 10 Ml Vial IJ DIRECTED PRN Sodium Chloride 0 ml 12/30/23 08:30 Normal Saline Flush 10 Ml Syr IVP BID CEZAR PFSH Active Problems Active Problems: Problem Status Onset Code Group B Streptococcus carrier, +RV culture, currently Acute O99.820 High BMI Acute Acute Z34.90 Irritable bowel syndrome with diarrhea Acute ~06/2022 K58.0 Diarrhea Acute R19.7 BMI 37.0-37.9, adult Resolved Z68.37 Medical History Medical History Low back pain Yeast dermatitis Amniotic fluid index borderline low Tinea versicolor back of neck, underneath breasts bilaterally Family history of hypertension extensive HTN in pt's immediate and extended family Sciatica of right side refered to PT 02/20/21 Allergy to amoxicillin Pt reports allergy is a skin rash, historically. Referred to [facility] for allergy testing 02/20/21 Surgical History Surgical History (Updated 07/18/22 @ 15:39 by Nel Saldana RN) H/O colonoscopy (06/24/22) [facility] Status post primary low transverse section (~08/2021) Hx of tonsillectomy (~03/2015) Appendectomy (09/02/14) Tobacco Smoking/Tobacco Use Status: Former Tobacco Use Passive smoking exposure: Yes Second hand exposure: Yes Alcohol Alcohol Intake: former Substance Use Substance use: Never Substance use type: does not use Details: no IV drug use Prental History History 2 Para 1 Hx # Term Pregnancies 1 Multiple births 0 Hx # Pregnancies 0 Ectopic pregnancies 0 AB induced 0 Hx Number of Living Children 1 AB spontaneous 0 Past Pregnancies Del. Date GA/Weeks # Preg Succ Route Wgt Sex Labor Lgth Anesth esia Location [facility] 09/12/21 41 No Yes 4450.875 g Male Home Anaya MD Delivery Date: 09/12/21 Last Updated by: Karina Malhotra CNM Induction for oligohydramnios, progressed to 6 cm and had Category II strip and maternal fever, taken for . GBS positive Vital Signs and Lab Results Vital Signs Most Recent Vital Signs in EMR: Most Recent Vital Signs Temp Pulse Resp BP Pulse Ox 36.6 C 109 H 17 126/76 97 12/30/23 06:07 12/30/23 06:07 12/30/23 06:07 12/30/23 06:07 12/30/23 06:07 Lab Results Blood Type / Crossmatch: Antibody Screen NEGATIVE 12/29/23 Complete Blood Count: White Blood Count 10.97 10^3/uL (4.4-10.8) H 12/29/23 11:14 Red Blood Count 5.27 10^6/uL (3.93-5.22) H 12/29/23 11:14 Hemoglobin 14.5 g/dL (11.2-15.7) 12/29/23 11:14 Hematocrit 43.0 % (36.0-46.0) 12/29/23 11:14 Platelet Count 252 10^3/uL (130-400) 12/29/23 11:14 Complete Metabolic Panel: No Data to Display Liver Function Panel: No Data to Display Coagulation Panel: No Data to Display Cardiac Panel: No Data to Display Arterial Blood Gas: No Data to Display Venous Blood Gas: No Data to Display Pancreas Panel: No Data to Display Thyroid Panel: No Data to Display Infectious Disease: No Data to Display Blood Cultures: No Data to Display Toxicology Panel: No Data to Display Panel: No Data to Display Anesthesia Assessment and Plan Anesthesia History Personal History: No History of Anesthesia Complications Family History: No Family History of Anesthesia Complications Exercise Tolerance Exercise Tolerance: Metabolic Equivalents>4 Pertinent Negatives Pertinent Negatives: No Symptoms of GERD, No Major Cardiovascular Symptoms or Complaints, No Major Pulmonary Symptoms or Complaints and No History of CVA/TIA Cardiac & Pulmonary Exam Cardiac Exam: Normal S1/S2 Heart Sounds Pulmonary Exam: Clear Bilateral Breath Sounds Implantable Cardiac Device Does patient have a Pacemaker or an ICD?: No Airway Exam Known Difficult Airway: No Mallampati Class: 2 Mouth Opening: Normal (> 3cm) Thyromental Distance: Greater than 3 cm Neck Range of Motion: Full ROM Neck Circumference: Thick Teeth Condition: Normal Dentition ASA Classification ASA Score: ASA 3 Emergency Case?: No NPO Status NPO Status: NPO Clears >2 hours, Solids >8 hours Status Status: Confirmed Anesthesia Plan Resuscitation Status: Full Code Anesthesia Technique: Spinal Anesthesia Airway Planned: Natural Airway Pain Management: Intrathecal Analgesia Monitors Used: Standard Monitors Preoperative Comments:: Significant PMH: High BMI, , IBS Plan: Local and opioid intrathecal, GA back up, phenylephrine infusion, oxytocin infusion post .
[2023-12-30] MEDS: ceFAZolin 2 GM/50 ML BAG IV (07:45)
[2023-12-30] MEDS: Bupivacaine 0.25% Pres-Free 30 ML VIAL (08:11)
--- NOTE | 2023-12-30 08:28 | W.PM.OBCSECT ---
Date of service: 12/30/23 Time of Service: 08:28 Operative Note Operative Note Delivery Method: Scheduled and Repeat Previous LT Incision: Yes DATE OF PROCEDURE: 12/30/23 PRE-OP DIAGNOSES: Term , prior , declined trial of labor POST-OP DIAGNOSES: same Adhesions of the omentum to the anterior abdominal wall and uterus PROCEDURE: Repeat low-transverse section, lysis of adhesions SURGEON: Rosa Urrutia Assisting Surgeon: Jeanette Rivera Anesthesia: local and spinal Estimated blood loss (mL): 490 Pathology: none sent Complications: None Patient was transported to: floor Patient's condition: stable Indications: Previous section. Declines trial of labor Findings: Delivery of a viable female . Normal-appearing tubes, ovaries, uterus. Adhesions of the omentum to the anterior wilfred wall, and mid fundus of the uterus. Procedure Description: After full informed consent was obtained, patient was taken the operating suite with an IV running. She is placed in the seated position and spinal anesthesia administered. She was then placed in the dorsal supine position with leftward tilt. Spinal anesthesia was tested and found to be adequate. She had antibiotic prophylaxis with Ancef, 2 g and Zithromax, 500 mg IV. She had a Green catheter for continuous bladder drainage. She had pneumatic compression stockings for DVT prophylaxis. She was prepped and draped in the usual sterile fashion with a vaginal prep and abdominal preparation. A Pfannenstiel skin incision was made and carried down to the underlying fascia which was nicked in the midline. The fascial incision was extended sharply laterally. The rectus muscles were identified and in the midline. The peritoneum was identified tented up and entered sharply. There is noted to be adhesions of the omentum to the anterior abdominal wall which were meticulously dissected away. At this point the delay bladder blade was inserted and the vesicouterine peritoneum identified tented up and entered sharply. The vesicouterine peritoneum was pushed away from the lower uterine segment and the bladder blade reinserted. A low transverse incision was made with a scalpel and extended bluntly laterally. There is artificial rupture of membranes for clear fluid. The vertex was delivered through the incision and the occiput transverse position. There was no evidence of nuchal cord. Shoulders followed without difficulty. Three-vessel cord was noted clamped x 2 and cut in the appropriate delay of cord clamping. The infant was handed off to the waiting cloth mercerizer operator. At this point cord blood sample was obtained. This placenta was manually expressed from the uterus and the uterus exteriorized. There was noted to be a small adhesion band of omentum to the fundal region of the uterus which was cautery transected and adhesion sites were hemostatic. The placenta was noted to be intact. The uterus was cleared of all clots and debris. The uterine incision was then closed in a 2 layer closure using 0 Monocryl suture with the first layer being running locked, second layer being imbricating. The uterus was then returned to the abdomen and the abdomen irrigated with copious amounts of normal saline. The uterine incision was again inspected and noted to be hemostatic. At this point the fascial incision was closed using 0 Vicryl suture in a running fashion. Subcutaneous tissue irrigated with copious amounts of normal saline and reapproximated with 3-0 Vicryl in a simple interrupted fashion. The subcuticular space was closed with a subcuticular stitch of 4-0 undyed Monocryl. Steri-Strips and sterile dressing were placed. The patient will return to the obstetric floor. She has a Green catheter draining clear yellow urine. Patient is in stable condition. Complications: None apparent Qualitative blood loss: 490 mL Fluids: Crystalloid per anesthesia Findings: Delivery of a viable female infant from the occiput transverse position. Normal-appearing tubes, ovaries, uterus. Adhesions of the omentum to the anterior abdominal wall and uterine fundus. Pathology: None sent
--- NOTE | 2023-12-30 13:51 | W.ANESPOSTOP ---
Postoperative Evaluation Date, Time and Location Date Performed: 12/30/23 Time Performed: 12:45 Patient Location: Obstetrics Vital Signs Most Recent Imported Vital Signs: Most Recent Vital Signs Temp Pulse Resp BP Pulse Ox 36.4 C L 75 20 107/72 100 12/30/23 13:14 12/30/23 13:14 12/30/23 13:14 12/30/23 13:14 12/30/23 13:14 Pain Score Most Recent Pain Score: Most Recent Pain Score Pain Level 0 12/30/23 13:00 Assessment Mental Status: Awake (Alert & Oriented to Patient Baseline) Airway and Respiratory Function: Patent airway with normal (patient baseline) respiratory exam Cardiovascular Function: Hemodynamically Stable Hydration Status: Adequately Hydrated Nausea & Vomiting: No Nausea or Vomiting Pain: Pt. Denies Any Pain Peripheral Nerve Block: Patient did not receive a nerve block Teaching Patient Teaching: Discussed Safe Use of Pain Medication Given Recent Anesthesia Postoperative Comments:: Miss Anglin is being evaluated post-operatively following a spinal anesthetic for a c/s. She is awake, alert and oriented, sitting conversing with family. She endorses overall satisfaction with her spinal anesthetic and surgical experience overall. She reports one episode of nausea and vomiting around 1000am after ingesting some grapes but denies now. Her respiratory status is at baseline and she is in no acute distress. Sensation to the bilateral lower extremities and abdomen have returning and she is strong throughout.
[2023-12-30] MEDS: Ketorolac 30 MG/ML VIAL 15 MG IVP ×2 (14:39→20:28)
[2023-12-30] MEDS: Normal Saline Flush 10 ML SYR IVP (20:29)
[2023-12-31] VITALS (10 sets, daily range): BP systolic 107–120; BP diastolic 68–75; PULSE 70–80; RESP 14–18; TEMP 36.2–36.9; O2SAT 97–98
[2023-12-31] MEDS: Ketorolac 30 MG/ML VIAL 15 MG IVP (04:10)
[2023-12-31 06:50] LABS: Abs Immature Grans 0.12 10^3/uL (0.0-0.06); Absolute Basophil Count 0.04 10^3/uL (0.0-0.2); Basophils % 0.3 %; Eosinophils % 0.7 %; HCT 40.2 % (36.0-46.0); HGB 13.5 g/dL (11.2-15.7); Immature Grans % 0.8 %; Lymphocytes % 24.8 %; MCH 27.4 pg (27.0-33.0); MCHC 33.6 % (32.0-36.0); MCV 82 fL (80-95); MPV 10.7 fL (8.0-11.0); Neutrophils % 66.4 %; Platelet Count 236 10^3/uL (130-400); RBC 4.93 10^6/uL (3.93-5.22); RDW 14.3 % (11.7-14.6); RDW-SD 41.8 fL; WBC 14.93 10^3/uL (4.4-10.8)
[2023-12-31 06:56] LABS: Absolute Monocyte Count 1.05 10^3/uL (0.1-0.8); Absolute Neutrophil Count 9.91 10^3/uL (1.2-6.7)
--- NOTE | 2023-12-31 09:11 | OBPPV_ITS ---
Date of service: 12/31/23 Time of Service: 09:11 Assessment and Plan Assessment and plan (1) Status post repeat low transverse section: Status: Acute Assessment and plan: Postop day 1 status post repeat low-transverse section. Doing well. Hemoglobin is stable. Ambulating, tolerating regular diet. Green catheter is out. Anticipate discharge home 01/01/2024 if stable. Subjective Subjective Interval history: Patient seen and examined. Doing well. No pain. Ambulating. Green catheter is out and she is voiding without difficulty. [place] baby status: Doing well, Nursing well and Strong Bonding Observed Exam Physical Exam Vital signs: Temp Pulse Resp BP Pulse Ox 97.2 F L 71 14 117/70 98 12/31/23 08:22 12/31/23 08:22 12/31/23 08:22 12/31/23 08:22 12/31/23 08:22 Vital Signs Reviewed: Yes HEENT Exam HEENT Exam: Normal Respiratory Exam Respiratory Exam: Normal Cardiovascular Exam Cardiovascular Exam: Normal Abdominal Exam Abdomen: Tender Comments: Mepilex dressing in place Fundal Exam Fundus: Below Umbilicus and Firm Extremities Exam Extremity Exam: Normal; negative Calf Tenderness Results Hemoglobin/Hematocrit: Hgb 13.5 g/dL (11.2-15.7) 12/31/23 06:08 Hct 40.2 % (36.0-46.0) 12/31/23 06:08 Abnormal Lab Findings: Abnormal Labs 12/31/23 06:08 WBC 14.93 H Absolute Neutrophils 9.91 H Absolute Lymphocytes 3.70 H Absolute Monocytes 1.05 H
[2023-12-31] MEDS: Docusate Sodium 100 MG CAP PO (09:31)
[2023-12-31] MEDS: Acetaminophen 325 MG TAB 650 MG PO ×2 (12:43→20:30)
[2023-12-31] MEDS: Ibuprofen 600 MG TAB PO ×2 (12:44→20:30)
[2024-01-01] MEDS: Ibuprofen 600 MG TAB PO (05:09)
[2024-01-01] MEDS: Acetaminophen 325 MG TAB 650 MG PO (05:09)
[2024-01-01 07:30] VITALS: BP 113/77; PULSE 83; RESP 12; TEMP 36.6
--- NOTE | 2024-01-01 08:09 | W.PM.OBPNV1 ---
Date of service: 01/01/24 Time of Service: 08:09 Assessment and Plan Assessment and plan (1) Status post repeat low transverse section: Status: Acute Assessment and plan: Postop day #2 status post repeat low-transverse section. Doing well. No issues or concerns. Discharge home. Follow-up in 1, 2, and 6 weeks. Subjective Subjective Interval history: Patient seen and examined this morning. Doing well. Desires discharge home. Baby is well. Exam Physical Exam Vital signs: Temp Pulse Resp BP Pulse Ox 98.4 F 80 17 120/69 97 12/31/23 09:45 12/31/23 09:45 12/31/23 09:45 12/31/23 09:45 12/31/23 09:45 Vital Signs Reviewed: Yes Constitutional Constitutional: no acute distress HEENT Exam HEENT Exam: Normal Neck Exam Neck Exam: Normal Respiratory Exam Respiratory Exam: Normal Cardiovascular Exam Cardiovascular Exam: Normal Abdominal Exam Comments: Nondistended. Mild tenderness. Mepilex in place Fundal Exam Fundus: Below Umbilicus and Firm Extremities Exam Extremity Exam: Edema (1+, bilateral); negative Calf Tenderness Skin Exam Skin Exam: Normal Neurological Exam Neurological Exam: Normal Psychiatric Exam Psychiatric Exam: Normal Results Hemoglobin/Hematocrit: Hgb 13.5 g/dL (11.2-15.7) 12/31/23 06:08 Hct 40.2 % (36.0-46.0) 12/31/23 06:08 Abnormal Lab Findings: Abnormal Labs 12/31/23 06:08 WBC 14.93 H Absolute Neutrophils 9.91 H Absolute Lymphocytes 3.70 H Absolute Monocytes 1.05 H
--- NOTE | 2024-01-01 08:15 | W.PM.OBDISCH ---
Date of service: 01/01/24 Time of Service: 08:15 DS: Diagnosis Discharge Diagnosis (1) Status post repeat low transverse section: Status: Acute Asessment and Plan: Postop day 2 status post repeat low-transverse section. Doing well. Discharge home today. Follow-up in 1, 2, and 6 weeks. All questions answered. Precautions given. Discharge Plan Disposition Patient Disposition: Home Condition: Good Discharge Details Reason For Visit: Delivery Admit Date/Time: 12/30/23 06:00 Admit Provider: Rosa Urrutia Attending Provider: Rosa Urrutia Primary Care Provider: Shameka Johnson Hospital Course Hospital Course: Patient presented to the hospital for repeat low-transverse section. She had uncomplicated delivery. She had a routine and postoperative care. She was discharged home postoperative day #2 ambulating, tolerating regular diet and oral pain medication with stable vital signs. She is breast-feeding her daughter. Home Meds and New Rx's Prescriptions: New ibuprofen 800 mg tablet 800 mg PO Q8H PRNQty: 40 1RF docusate sodium [Colace] 100 mg capsule 100 mg PO BID Qty: 30 0RF oxycodone-acetaminophen [Percocet] 5-325 mg tablet 1 tab PO Q8H PRNQty: 7 0RF No Action PNV,calcium [id number] acid 27 mg iron- 1 mg tablet 1 tab PO DAILY Qty: 90 4RF Rx Instructions: give with food (meal/snack) Discharge Instructions Activity:: Pelvic rest Equipment/Supplies:: No Equipment Needed Diet:: As Tolerated Discharge Orders Discharge Orders: Discharge Order (Routine); Ordered 01/01/24 Ordered By: Rosa Urrutia OB:DS Summary Contraception Discussed Contraception Discussed: Yes, [place] Gender-Baby A: Female weight: 8 lb 10.627 oz Status at Discharge Functional status at discharge: independent ambulation Overall status at discharge: patient is progressing back to baseline Mental Status: mental status grossly normal Speech and Movement: speech and movement normal Mood: congruent mood Affect: normal affect Quality:SDOH Health Related Social Needs: No Data to Display Exam Physical Exam Vital signs: Temp Pulse Resp BP Pulse Ox 98.4 F 80 17 120/69 97 12/31/23 09:45 12/31/23 09:45 12/31/23 09:45 12/31/23 09:45 12/31/23 09:45 Narrative: See physical exam from progress note dated 01/01/2024. PFSH All Active Problems (Updated 12/07/23 @ 09:46 by Rosa Urrutia DO) Status post repeat low transverse section (Acute) 12/30/2023 female, Dianne Group B Streptococcus carrier, +RV culture, currently (Acute) High BMI (Acute) BMI 41 (Acute) Irritable bowel syndrome with diarrhea (Acute ~06/2022) [facility] [place]; work-up NEG Diarrhea (Acute) Rferred [facility] [place] [facility] 08/2020-->11/13/20 letter from [facility] [place] they hadn't heard from pt (vmail mailbox full); pt was 04/2022--re-referred Medical History Low back pain Yeast dermatitis Amniotic fluid index borderline low Tinea versicolor back of neck, underneath breasts bilaterally Family history of hypertension extensive HTN in pt's immediate and extended family Sciatica of right side refered to PT 02/20/21 Allergy to amoxicillin Pt reports allergy is a skin rash, historically. Referred to [facility] [place] allergy testing 02/20/21 Surgical History (Updated 12/31/23 @ 09:13 by Rosa Urrutia DO) H/O colonoscopy (06/24/22) [facility] [place] post primary low transverse section (~08/2021) Hx of tonsillectomy (~03/2015) Appendectomy (09/02/14) Family History Father Hyperlipidemia Lung cancer metastasized to liver and bone Diabetes Hypertension Asthma Mother Thyroid disorder Paternal Cousin Breast cancer Maternal Uncle No problems noted. Paternal Grandfather , [place] (in his 70s?) Heart disease Social History Smoking/Tobacco Use Status: Former Tobacco Use tobacco type: e-cigarettes Quit Date: 03/02/18 Tobacco: How many years used: 4 Quit status: has quit before Second Hand Exposure: Yes Smoking risk assessment performed?: Yes Alcohol Intake: former Drug use: Never Substance use type: does not use Details: no IV drug use Adopted: No Caregiver/Support person: No Foster care: No Household members: significant other Housing: house Number of Children: 0 Communication Needs: Corrective Lenses Education Level: college Details: some Do you need help understanding health information?: Never current occupation: [employer] installer Pets and animals: Yes Pets and animals: cat(s) Sexually active: Yes Do you think of yourself as: straight/heterosexual Current gender identity: female What is your relationship status?: living with partner Panel score (0-1 are the most socially isolated patients): 1 What type of physical activity do you participate in: regular exercise and other Details: softball 2 nights/week Duration: 60-90 minutes/day Frequency: 1-2 times per week Seatbelt use: never Drive intox or ride w/intox retail delivery driver: No Water heater temp set <120 deg: Yes Working smoke detector in home: Yes Fire extinguisher in home: Yes Carbon monox detector in home: Yes Firearms in home: No Do you feel safe at home: Yes Do you feel safe in your relationship?: Yes Additional Social history: Confirmed 06/13/22 History History 2 Para 1 Hx # Term Pregnancies 1 Multiple births 0 Hx # Pregnancies 0 Ectopic pregnancies 0 AB induced 0 Hx Number of Living Children 1 AB spontaneous 0 Past Pregnancies Del. Date GA/Weeks # Preg Succ Route Wgt Sex Labor Lgth Anesthesia Location [facility] 09/12/21 41 No Yes 9 lb 13 oz Male Home Anaya MD Delivery Date: 09/12/21 Last Updated by: Karina Malhotra CNM Induction for oligohydramnios, progressed to 6 cm and had Category II strip and maternal fever, taken for . GBS positive DS: Data Vitals/I&O Vitals and I&O: Vital Signs Temperature 98.4 F 12/31/23 09:45 Temperature Source Oral 12/31/23 09:45 Pulse 80 12/31/23 09:45 Pulse Rhythm Regular 12/31/23 20:20 Respiratory Rate 17 12/31/23 09:45 Respiratory Depth Normal 12/31/23 20:20 Blood Pressure 120/69 12/31/23 09:45 Blood Pressure Mean 86 12/31/23 09:45 Pulse Oximetry 97 12/31/23 09:45 Oxygen Delivery Method Room Air 12/30/23 06:07 Oxygen Flow Rate 0 10/30/24 06:07 Pain Level 0 12/31/23 16:58 Intake & Output 12/31/23 12/31/23 01/01/24 11:59 23:59 11:59 Output Total 1225 / 1225 Balance -1225 / -1225 Output: Urine 1225 / 1225 Other: Urine Color Pale
== END 2024-01-01 09:15 | disposition home or self-care (01) | DRG 788 ==
PROVIDERS: Admitting Provider Obstetrics & Gynecology; PCP Nurse Practitioner Adult Health; Visit Provider Obstetrics & Gynecology
PROC: 10D00Z1 Extraction of Products of Conception, Low, Open Approach (ICD-10-PCS; CPT 59514; principal; 2023-12-30 07:30)
DX: O34.211 Maternal care for low transverse scar from previous cesarean delivery (principal); N85.8 Other specified noninflammatory disorders of uterus; O99.62 Diseases of the digestive system complicating childbirth; Z3A.39 39 weeks gestation of pregnancy; Z37.0 Single live birth; M54.31 Sciatica, right side; O99.824 Streptococcus B carrier state complicating childbirth; K58.0 Irritable bowel syndrome with diarrhea
CPT/HCPCS: 59514; 36415; 85025; J0456; J0665; J0690; J1100; J1885; J2274; J2371; J2405; J3010

== ENCOUNTER 2024-08-16 09:41 | Outpatient (REF) | payer OTHER, MEDICAID, SELFPAY ==
--- NOTE | 2024-08-16 09:20 | PAPFT_PTH ---
PATIENT: Jenifer Anglin LOC: [facility] U#:[id number] AGE/SX: 24/F ROOM: RE08/16/[address]: Rosa Urrutia DO : 2000 BED: DIS: 08/16/2024 SPEC #: [id number] RECD: 08/16/24 12:52 STATUS: ANA REBrittany #: [id number] ARABELLA: 08/16/24 09:[address]: Rosa Urrutia DEPT: [facility] Cytology RECD BY: Arlen Oconnell ENTERED: 08/16/24 12:52 SP TYPE: PAPFT OTHR DR: Shameka Johnson APRN Tissues: 1 - CX/ENDOCX FOR PAP SMEARS Procedures: PAP THIN PREP/[facility] Screening Comments: [id number] (CHLAMYDIA/GC)
[2024-08-17 12:33] LABS: Chlamydia Result Negative (Negative); GC Result Negative (Negative)
== END 2024-08-16 09:42 | disposition home or self-care (01) ==
LOC: LBN 09:41
PROVIDERS: PCP Nurse Practitioner Adult Health; Visit Provider Obstetrics & Gynecology
DX: Z12.4 Encounter for screening for malignant neoplasm of cervix (principal)
CPT/HCPCS: 87491; 87591; 88142